=== PATIENT | male | born 1945 | race Caucasian/White ===

== ENCOUNTER → 2019-11-29 08:13 | Outpatient (BNVA) | payer MEDICARE, SELFPAY | PROVIDERS: Family Provider Nurse Practitioner Family; PCP Nurse Practitioner Family; Visit Provider Nurse Practitioner Family | DX: I10 Essential (primary) hypertension (principal); E03.9 Hypothyroidism, unspecified; E11.9 Type 2 diabetes mellitus without complications; E78.5 Hyperlipidemia, unspecified; I25.10 Atherosclerotic heart disease of native coronary artery without angina pectoris | CPT/HCPCS: 80053; 80061; 83036; 84443; 85025 ==

== ENCOUNTER 2019-12-07 20:00 | Outpatient (CLI) | payer MEDICARE, SELFPAY | END 2019-12-07 20:01 | disposition home or self-care (01) | LOC: SLEEP 12-08 09:59 | PROVIDERS: Family Provider Nurse Practitioner Family; PCP Nurse Practitioner Family; Visit Provider Nurse Practitioner Family | DX: G47.30 Sleep apnea, unspecified (principal) | CPT/HCPCS: 95810 ==

== ENCOUNTER 2019-12-28 20:00 | Outpatient (CLI) | payer MEDICARE, SELFPAY | END 2019-12-28 20:01 | disposition home or self-care (01) | LOC: SLEEP 12-29 09:51 | PROVIDERS: Visit Provider Nurse Practitioner Family | DX: G47.33 Obstructive sleep apnea (adult) (pediatric) (principal) | CPT/HCPCS: 95810; 95811 ==

== ENCOUNTER 2020-01-21 20:06 | Inpatient (IN) | payer MEDICARE, SELFPAY ==
[2020-01-21 20:11] VITALS: BP 80/65; PULSE 146; RESP 20; TEMP 36.6; O2SAT 93; BMI 34.7
--- NOTE | 2020-01-21 20:22 | XR_ITS ---
WS: [id number] XR chest 1V portable [id number] REASON FOR EXAM: cough/congestion FINDINGS: The cardiac silhouette is borderline enlarged with arteriosclerotic changes. The pattern is similar to October 10, 2019. There is eventration of the right hemidiaphragm similar to the last exam. The hilum and apices normal. XR/XR chest 1V portable [id number] IMPRESSION: Borderline cardiomegaly with arteriosclerotic changes. Eventration of the right hemidiaphragm.
--- NOTE | 2020-01-21 20:22 | ECG_ITS ---
Measurements Intervals [place] Rate: 66 P: 31 [place]: 206 QRS: 34 QRSD: 90 T: 76 QT: 380 QTc: 401 SINUS RHYTHM Compared to ECG 10/06/2019 04:49:59 Sinus bradycardia no longer present Myocardial infarct finding no longer present Electronically Signed On 01-22-2020 20:20:34 SPECIAL EVENTS MANAGER by Sujey Burt M.D. [id number]
[2020-01-21] MEDS: sodium chloride 0.9% 1,000 ML 999 ML IV (20:58)
[2020-01-21 21:08] LABS: Basophils % 0.3 %; Eosinophils # 0.9 10^3/uL (0.0-0.8); Hematocrit 44.4 % (42.0-52.0); Hemoglobin 14.8 g/dL (11.7-16.6); Lymphocytes # 2.5 10^3/uL (0.8-4.8); Lymphocytes % 25.9 %; Mean Corpuscular HGB Conc 33.3 g/dL (30.0-36.0); Mean Corpuscular Hemoglobin 31.4 pg (28.0-34.0); Mean Corpuscular Volume 94.1 fL (80-94); Monocytes # 0.6 10^3/uL (0.2-0.9); Monocytes % 6.1 %; Neutrophils # 5.8 10^3/uL (1.8-7.7); Neutrophils % 58.6 %; Nucleated Red Blood Cells % 0 %; Platelet Count 246 10^3/cmm (130-400); Red Blood Count 4.72 10^6/uL (4.1-5.3); Red Cell Distribution Width 11.9 % (12.1-15.1); White Blood Count 9.8 10^3/uL (4.0-10.0)
[2020-01-21 21:33] LABS: Alanine Aminotransferase 20 U/L (0-41); Albumin Level 4.1 g/dL (3.5-5.2); Alkaline Phosphatase 77 IU/L (40-130); Anion Gap 18.5 (5-19); Aspartate Amino Transferase 25 U/L (0-40); Blood Urea Nitrogen 27 mg/dL (8-23); Calcium 9.2 mg/dL (8.5-10.5); Carbon Dioxide 23 mmol/L (22-29); Chloride 101 mmol/L (98-107); Globulin 3.1 g/dL (1.3-4.6); Glucose 222 mg/dL (65-115); Potassium 4.5 mmol/L (3.5-5.1); Sodium 138 mmol/L (136-145); Total Bilirubin 0.3 mg/dL (0.15-1.2); Total Protein 7.2 g/dL (6.6-8.7)
[2020-01-21 21:34] LABS: Troponin(5th) Baseline 24 ng/mL (0-15)
--- NOTE | 2020-01-21 22:18 | ED_ITS ---
Entered by Maryan Lazo, acting as scribe for Eliseo Dela Cruz DO Jan 21, 2020 20:06 HPI - Chest Pain General: Chief Complaint: Chest Pain Stated Complaint: cp Time Seen by Provider: 01/21/20 20:35 Source: patient and EMS Mode of arrival: EMS History of Present Illness: HPI narrative: 74 y/o male presents to the ED with complaint of chest pain and elevated HR. Pt states he took his cardiac medications too close together. He took the first dose of the day ( normally taken in the AM) at 1500 and took the evening dose at 1930. Pt has hx of coronary dz and had stent placement several months ago. He also has hx of SVT. MD complaint: chest pain Associated symptoms: Reports abdominal pain (epigastric - chronic) and palpitations; Deny dyspnea, fever(s), nausea or vomiting Review of Systems Const: Denies: fever or chills Eyes: Denies: change in vision or blurry vision ENMT: Reports: post nasal drip and facial/sinus pain; Denies: painful swallowing or swelling of lips/tongue Card: Reports: chest pain, palpitations, edema and swelling of feet/ankles; Denies: shortness of breath on exertion or shortness of breath when lying down Resp: Denies: shortness of breath, productive cough, non-productive cough or wheezing GI: Reports: abdominal pain (epigastric - chronic); Denies: nausea, vomiting, rectal pain, blood in stool or black tarry stool : Denies: difficulty urinating, painful urination, urinary frequency, urinary urgency or blood in urine Musc: Reports: extremity swelling (1+); Denies: neck pain, back pain, redness or joint warmth Skin/Breast: Denies: rash, itching or redness Neuro: Denies: headache, dizziness, vertigo or confusion Psych: Denies: anxiety PFSH ED PFSH: Medical History (Updated 01/22/20 @ 00:59 by Chelle Gutierrez MD) CAD (coronary artery disease) Diabetes mellitus treated with oral medication Elevated LFTs History of paroxysmal supraventricular tachycardia History of throat cancer Hyperlipemia Hypertension Hypothyroid Ischemic cardiomyopathy Lumbar pain with radiation down both legs Myocardial infarction Nocturia Nodule of right lung Onychomycosis of toenail Right leg DVT Seasonal allergies Shortness of breath Sleep apnea Supraventricular tachycardia Surgical History History of heart artery stent Social History (Updated 01/17/20 @ 12:51 by Katelynn Mcpherson LPN, RT) Smoking and tobacco status: never smoked Second hand smoke exposure: No Lives independently: Yes Household members: significant other Marital status: service: Yes Current occupational status: retired History of recent travel: No Current gender identity: Male Physical Exam Const: COMMON NORMALS: alert GENERAL APPEARANCE: well developed ORIENTATION/CONSCIOUSNESS: Yes awake, Yes oriented to person, Yes oriented to place and Yes oriented to time HENMT: COMMON NORMALS: normocephalic, external ears normal, external nose normal and moist oral mucous membranes HEAD & SCALP: normocephalic; no scalp tenderness FACE & SINUS: normal facial exam NOSE: external nose normal and no nasal discharge EXTERNAL EAR: Yes external ears normal MOUTH: tongue normal TEETH & GINGIVA: no abnormal tooth and associated gingiva THROAT: posterior oropharynx normal; no peritonsillar mass Eye: COMMON NORMALS: PERRL, EOMs intact bilaterally and conjunctivae normal EYELID: eyelids normal CONJUNCTIVA: Yes conjunctivae normal PUPIL: Yes PERRL Neck/C-Spine: COMMON NORMALS: full ROM Chest: COMMONS NORMALS: inspection of chest normal CHEST: Yes symmetrical chest wall rise and Yes tenderness (epigastric - chronic) Resp: COMMON NORMALS: clear to auscultation bilaterally EFFORT & INSPECTION: No tachypneic, No respiratory distress, No retractions, No uses accessory muscles and No tracheal deviation AUSCULTATION: clear to auscultation bilaterally, no rhonchi, no wheezes and lung sounds not diminished Cardio: COMMON NORMALS: regular rhythm; negative for regular rate (tachycardia) RATE: abnormal rate (tachycardia) and tachycardic RHYTHM: regular rhythm HEART SOUNDS: no murmurs PERIPHERAL PULSES: radial pulses present GI: INSPECTION: No abdominal distension AUSCULTATION: No hyperactive bowel sounds and No hypoactive bowel sounds PALPATION: No guarding and No rigid PERCUSSION: no dullness to percussion and no tympanic to percussion Extremity: GENERAL: Yes edema (+1 LE) Neuro: SENSORIUM/ORIENTATION: Yes alert, Yes oriented to person, Yes oriented to place and Yes oriented to time Psych: COMMON NORMALS: mental status grossly normal and speech normal SPEECH: Yes normal speech Skin: COMMON NORMALS: no rashes or lesions noted GENERAL SKIN EXAM: no rashes or lesions noted Course Vital Signs: Vital signs: Vital Signs Temperature 97.9 F 01/22/20 04:00 Pulse Rate 57 L 01/22/20 04:00 Respiratory Rate 18 01/22/20 04:00 Blood Pressure 104/61 01/22/20 04:00 Pulse Oximetry 96 01/22/20 04:00 MDM - Chest Pain MDM Narrative: Medical decision making narrative: 74-year-old male with a history of coronary disease, stented September. He presents with chest pain, and palpitations. His heart rate was noted to be in the 150s. He is in SVT on EKG initially. Heart rate was 150s. Blood pressure mildly soft, in the high 80s and low 90s systolic. He was given a single dose of Cardizem, with resolution of his SVT over about 15 minutes. His heart rate decreased nicely to the 60s in sinus. His blood pressure improved to 120s over 70s. His first troponin was mildly elevated, his second troponin increased by a little more than 25. This is likely demand from rate given his prior coronary disease. But with the chest pain, and his history, he was given the option of observation. At first he said he would like to be discharged. He then quickly changed his mind, and opted for observation with continued checking of troponin enzyme. Lab Data: Labs: Lab Results 01/21/20 01/21/20 01/21/20 Range/Units 20:50 20:50 20:50 WBC 9.8 (4.0-10.0) 10^3/ uL RBC 4.72 (4.1-5.3) 10^6/u L Hgb 14.8 (11.7-16.6) g/dL Hct 44.4 (42.0-52.0) % MCV 94.1 H (80-94) fL MCH 31.4 (28.0-34.0) pg MCHC 33.3 (30.0-36.0) g/dL RDW 11.9 L (12.1-15.1) % Plt Count 246 (130-400) 10^3/c mm MPV 11.0 H (7.4-10.4) fL Neut % (Auto) 58.6 % Lymph % (Auto) 25.9 % [place] % (Auto) 6.1 % Eos % (Auto) 9.0 % Baso % (Auto) 0.3 % Neut # (Auto) 5.8 (1.8-7.7) 10^3/u L Lymph # (Auto) 2.5 (0.8-4.8) 10^3/u L [place] # (Auto) 0.6 (0.2-0.9) 10^3/u L Eos # (Auto) 0.9 H (0.0-0.8) 10^3/u L Baso # (Auto) 0.0 (0.0-0.1) 10^3/u L Nucleated RBC % (a uto) 0 % Nucleated RBCs # 0.0 /100WBC Sodium 138 (136-145) mmol/L Potassium 4.5 (3.5-5.1) mmol/L Chloride 101 (98-107) mmol/L Carbon Dioxide 23 (22-29) mmol/L Anion Gap 18.5 (5-19) BUN 27 H (8-23) mg/dL Creatinine 1.1 (0.7-1.2) mg/dL Glucose 222 H (65-115) mg/dL Calcium 9.2 (8.5-10.5) mg/dL Magnesium (1.7-2.3) mg/dL Total Bilirubin 0.3 (0.15-1.2) mg/dL AST 25 (0-40) U/L ALT 20 (0-41) U/L Alkaline Phosphata se 77 (40-130) IU/L Troponin T Baselin e 24 H (0-15) ng/mL Troponin T 120 Min darryl (0-15) ng/mL Delta Troponin T (0-10) ABS# Total Protein 7.2 (6.6-8.7) g/dL Albumin 4.1 (3.5-5.2) g/dL Globulin 3.1 (1.3-4.6) g/dL TSH (0.27-4.20) uIU/ mL 01/21/20 01/21/20 Range/Units 20:50 23:23 WBC (4.0-10.0) 10^3/ uL RBC (4.1-5.3) 10^6/u L Hgb (11.7-16.6) g/dL Hct (42.0-52.0) % MCV (80-94) fL MCH (28.0-34.0) pg MCHC (30.0-36.0) g/dL RDW (12.1-15.1) % Plt Count (130-400) 10^3/c mm MPV (7.4-10.4) fL Neut % (Auto) % Lymph % (Auto) % [place] % (Auto) % Eos % (Auto) % Baso % (Auto) % Neut # (Auto) (1.8-7.7) 10^3/u L Lymph # (Auto) (0.8-4.8) 10^3/u L [place] # (Auto) (0.2-0.9) 10^3/u L Eos # (Auto) (0.0-0.8) 10^3/u L Baso # (Auto) (0.0-0.1) 10^3/u L Nucleated RBC % (a uto) % Nucleated RBCs # /100WBC Sodium (136-145) mmol/L Potassium (3.5-5.1) mmol/L Chloride (98-107) mmol/L Carbon Dioxide (22-29) mmol/L Anion Gap (5-19) BUN (8-23) mg/dL Creatinine (0.7-1.2) mg/dL Glucose (65-115) mg/dL Calcium (8.5-10.5) mg/dL Magnesium 2.1 (1.7-2.3) mg/dL Total Bilirubin (0.15-1.2) mg/dL AST (0-40) U/L ALT (0-41) U/L Alkaline Phosphata se (40-130) IU/L Troponin T Baselin e (0-15) ng/mL Troponin T 120 Min darryl 53.37 H (0-15) ng/mL Delta Troponin T 29.37 H* (0-10) ABS# Total Protein (6.6-8.7) g/dL Albumin (3.5-5.2) g/dL Globulin (1.3-4.6) g/dL TSH 4.31 H (0.27-4.20) uIU/ mL EKG Data^: EKG 1: EKG interpretation date: 01/21/20 EKG interpretation time: 21:47 Computer generated interpretation: Sinus normal vent rate 66bpm pr int 206 ms qrs dur 90 EKG 2: EKG interpretation date: 01/21/20 EKG interpretation time: 22:19 Other EKG comments: Vent rate 62 bpm IA int 212 ms QRS due 95 ms Discharge Plan Discharge Patient Disposition: Placed in Observation Admit Provider: Chelle Gutierrez Clinical Impression: Supraventricular tachycardia Condition: Stable Discharge Diet: Usual diet Discharge Activity: Increase activity as tolerated Interventions: ED Discharge Assessment Last Done: 01/22/20 01:04 Discharge Date/Time: 01/22/20 01:25 Coding Level of Care Code ED Acid Loader for Chg Fwd Exam Comprehensive The documentation recorded by the Clifton olivares Ashley, accurately reflects the service I personally performed and the decisions made by Jose De Jesus thomas Jeremy John, DO Jan 21, 2020 20:06
--- NOTE | 2020-01-21 22:22 | ECG_ITS ---
Measurements Intervals [place] Rate: 62 P: 44 TN: 212 QRS: 45 QRSD: 95 T: 83 QT: 388 QTc: 397 SINUS RHYTHM WITH FIRST DEGREE AV BLOCK Compared to ECG 10/06/2019 04:49:59 First degree AV block now present Sinus bradycardia no longer present Myocardial infarct finding no longer present Electronically Signed On 01-22-2020 20:27:37 ASBESTOS CEMENT SHEET SUPERVISOR by Sujey Burt M.D. [id number]
[2020-01-21 23:44] LABS: Troponin 5 2HR 53.37 ng/mL (0-15)
[2020-01-21 23:47] LABS: Troponin 5 2HR Delta 29.37 ABS# (0-10)
--- NOTE | 2020-01-21 23:50 | PC.NURSE ---
Critical Value - Troponin 53.3 increase in Delta of 29.3
[2020-01-22] VITALS (9 sets, daily range): BP systolic 104–140; BP diastolic 50–77; PULSE 55–79; RESP 17–22; TEMP 36.4–36.8; O2SAT 93–98
--- NOTE | 2020-01-22 00:58 | PM.HP ---
Providers/Chief Complaint Admitting Physician: Chelle Gutierrez MD Primary Care Provider: Sally Min MD Chief Complaint: cp History of Present Illness Mike Esposito is a 74 year old male who has established coronary disease with stent in LAD after he was diagnosed with two-vessel disease in September 2019 came in with chief complaint of chest pain. Patient is stating that he was in his usual state of health until this event. He is independent for his daily activities never had any recurrence of chest pain since placement of stent. He does not smoke, he is compliant with dual antiplatelet therapy. He was lawnmowing outside for about 3 to 4 hours between 10 AM to 3 PM when he started experiencing chest pain which was left-sided, sharp, heavy in nature, his both wrists were hurting at that time, he went back inside to blood pressure which was 97 systolic with heart rate of 130 at that time he did told his girlfriend who recommended him to go to the ER. He called EMS, when they arrived to check his pulse which was 150, he was in SVT, he was given 50 mg of diltiazem which relieved his chest pain, improved his systolic blood pressure and he converted to normal sinus rhythm. Patient is endorsing recent sinus congestion and he was prescribed Augmentin he has finished 4 days out of 10, he is denying orthopnea PND. Diagnostics in ER showed normal sinus rhythm, normal hemodynamics, first troponin was not significantly high at however second troponin was high with significant delta he was asymptomatic, this was deemed secondary to tachyarrhythmia, patient was given an option to see economic research analyst on outpatient settings but he decided to stay because of recent stent history. Hospital service was requested to observe overnight. When I interviewed him he had normal hemodynamics, asymptomatic, he was eating his sandwich Patient is stating that he has not received his CPAP machine for sleep apnea, he is compliant with his magnesium and levothyroxine. Mag and TSH level ordered Review of Systems Const: Denies: fever or chills Eyes: Denies: change in vision ENMT: Denies: throat pain Card: Reports: chest pain and palpitations; Denies: irregular heart rhythm, edema, swelling of feet/ankles, lightheadedness, syncope or shortness of breath when lying down Resp: Denies: shortness of breath GI: Denies: abdominal pain, nausea or coffee grounds in vomit : Denies: flank pain Musc: Denies: neck pain Skin/Breast: Denies: rash Neuro: Denies: headache Psych: Denies: anxiety Endo: Denies: excessive urination Laith/Lymph: Denies: easy bruising All/Imm: Denies: hives Medications/Allergies Allergies Allergy/AdvReac Type Severity Reaction Status Date / Time erythromycin base Allergy ALGY-Hives Verified 01/22/20 01:20 PFSH Acute PFSH: Medical History (Updated 01/22/20 @ 00:59 by Chelle Gutierrez MD) CAD (coronary artery disease) Diabetes mellitus treated with oral medication Elevated LFTs History of paroxysmal supraventricular tachycardia History of throat cancer Hyperlipemia Hypertension Hypothyroid Ischemic cardiomyopathy Lumbar pain with radiation down both legs Myocardial infarction Nocturia Nodule of right lung Onychomycosis of toenail Right leg DVT Seasonal allergies Shortness of breath Sleep apnea Supraventricular tachycardia Surgical History History of heart artery stent Social History (Updated 01/17/20 @ 12:51 by Katelynn Mcpherson LPN, RT) Smoking and tobacco status: never smoked Second hand smoke exposure: No Lives independently: Yes Household members: significant other Marital status: service: Yes Current occupational status: retired History of recent travel: No Current gender identity: Male Vitals/I&O/Wt Last Vital Signs Temp 97.8 F 01/21/20 20:11 Pulse 146 H 01/21/20 20:11 Resp 20 H 01/21/20 20:11 BP 80/65 01/21/20 20:11 Pulse Ox 93 01/21/20 20:11 Weight last 48 hrs Weight 106.594 kg Physical Exam Narrative: EXAM NARRATIVE: Well-built male was eating sandwich on my arrival in the room Pleasant to communicate Awake alert oriented x3 EOMI, PERRLA S1-S2 no signs of heart failure murmur, reproducible chest pain Abdomen soft nontender nondistended bowel sound present Lungs are clear to auscultation without adventitious sounds Neurologically nonfocal exam Appropriate mood and affect Skin does not show any sign ischemia or ulcer Data : 01/21/20 20:50 01/21/20 20:50 A&P Assessment and plan (1) SVT (supraventricular tachycardia): Status: Acute Code(s): I47.1 - Supraventricular tachycardia (2) Chest pain: Status: Acute Code(s): R07.9 - Chest pain, unspecified (3) CAD (coronary artery disease): Status: Acute Code(s): I25.10 - Atherosclerotic heart disease of [place] coronary artery without angina pectoris Additional A&P Information Chest pain and palpitations Secondary to SVT Etiology of SVT is most likely upper respiratory infection, untreated sleep apnea, will check mag and TSH level as well I have increased his metoprolol dose for now from 50 to 100 mg Currently asymptomatic, normal sinus rhythm, EKG reviewed, 6-hour troponin is pending Established coronary disease with stent in LAD Continue dual antiplatelet therapy, Continue lisinopril, high-dose statin, Hypothyroidism: We will check TSH level, continue levothyroxine current dose BPH: Continue tamsulosin Upper restaurant tract infection/sinusitis He has been prescribed 10 days of Augmentin We will continue Augmentin for now Check flu swab Full code DVT prophylaxis: Lovenox Cardiac diet Attestations Medical Necessity Statement*: Anticipating discharge in less than 48 hours after ruling out cardiac cause of chest pain and monitor heart rate because he presented with SVT Time Spent in Patient Care: 50 Coding Level of Care Code Acute Tax Staff Accountant for Janny Hyatt Diagnoses SVT (supraventricular tachycardia) I47.1 Chest pain R07.9 CAD (coronary artery disease) I25.10
--- NOTE | 2020-01-22 01:21 | PC.NURSE ---
Agree with assessment at this time.
--- NOTE | 2020-01-22 01:27 | PC.NURSE ---
Patient arrived to the floor after receiving report from the ED. Patient is alert and oriented and able to ambulated. Patient has call light within reach and has been oriented to his room. Patient is not having any pain or any other issues at this time and is on room air. VSS. Patient states he went to sleep lab and was told he had sleep apnea and is in the process of getting a breathing machine for his sleep apnea. Patient states he has a history of throat cancer and has some teeth lost, which makes it difficult to eat at times. He says he does not have any dentures. He says he uses a cane at home at times.
--- NOTE | 2020-01-22 01:31 | PC.NURSE ---
Patient states he has been having trouble breathing through his nose and states he was recently taking Penicillin for it.
[2020-01-22 02:04] LABS: Magnesium 2.1 mg/dL (1.7-2.3); Thyroid Stimulating Hormone 4.31 uIU/mL (0.27-4.20)
--- NOTE | 2020-01-22 02:22 | ECG_ITS ---
Measurements Intervals [place] Rate: 148 P: [place]: 0 QRS: 33 QRSD: 106 T: 84 QT: 280 QTc: [address] & T-WAVE ABNORMALITY ABNORMAL RHYTHM ECG Compared to ECG 10/06/2019 04:49:59 T-wave abnormality now present Sinus bradycardia no longer present Myocardial infarct finding no longer present Electronically Signed On 01-22-2020 20:27:23 SPANISH LINGUIST by Sujey Burt M.D. [id number]
[2020-01-22 02:38] LABS: Influenza A by IFA Negative (Negative); Influenza B by IFA Negative (Negative)
[2020-01-22 04:23] LABS: Basophils % 0.4 %; Eosinophils # 0.8 10^3/uL (0.0-0.8); Hematocrit 42.3 % (42.0-52.0); Hemoglobin 13.9 g/dL (11.7-16.6); Lymphocytes # 2.4 10^3/uL (0.8-4.8); Lymphocytes % 31.2 %; Mean Corpuscular HGB Conc 32.9 g/dL (30.0-36.0); Mean Corpuscular Hemoglobin 32.2 pg (28.0-34.0); Mean Corpuscular Volume 97.9 fL (80-94); Monocytes # 0.5 10^3/uL (0.2-0.9); Monocytes % 6.8 %; Neutrophils % 51.5 %; Nucleated Red Blood Cells % 0 %; Platelet Count 219 10^3/cmm (130-400); Red Blood Count 4.32 10^6/uL (4.1-5.3); Red Cell Distribution Width 12.2 % (12.1-15.1); White Blood Count 7.8 10^3/uL (4.0-10.0)
[2020-01-22 04:25] LABS: Alanine Aminotransferase 15 U/L (0-41); Albumin Level 3.7 g/dL (3.5-5.2); Alkaline Phosphatase 60 IU/L (40-130); Anion Gap 11.9 (5-19); Aspartate Amino Transferase 25 U/L (0-40); Blood Urea Nitrogen 19 mg/dL (8-23); Calcium 8.5 mg/dL (8.5-10.5); Carbon Dioxide 25 mmol/L (22-29); Chloride 105 mmol/L (98-107); Globulin 2.9 g/dL (1.3-4.6); Glucose 155 mg/dL (65-115); Potassium 3.9 mmol/L (3.5-5.1); Sodium 138 mmol/L (136-145); Total Bilirubin 0.5 mg/dL (0.15-1.2); Total Protein 6.6 g/dL (6.6-8.7)
[2020-01-22 04:43] LABS: Troponin 5 6HR 209.3 ng/mL (0-15); Troponin 5 6HR Delta 185.3 ng/L (0-12)
[2020-01-22] MEDS: levothyroxine 150 mcg Tablet 75 MCG PO (07:09)
[2020-01-22] MEDS: aspirin 81 mg EC Tablet PO (08:29)
[2020-01-22] MEDS: tamsulosin 0.4 mg Capsule PO (08:29)
[2020-01-22] MEDS: atorvastatin 40 mg Tablet PO (08:29)
[2020-01-22] MEDS: clopidogrel 75 mg Tablet PO (08:29)
[2020-01-22] MEDS: carvedilol 6.25 mg Tablet PO (08:29)
[2020-01-22] MEDS: gabapentin 300 mg Capsule PO ×3 (08:29→20:13)
[2020-01-22] MEDS: lisinopril 5 mg Tablet 2.5 MG PO (08:30)
[2020-01-22] MEDS: amoxicillin-clav 875-125 mg Tablet 1 TAB PO ×2 (08:30→17:15)
--- NOTE | 2020-01-22 09:57 | PC.CHAP ---
Pastoral Care Encounter/Spiritual Assessment Type of Contact [] Declined disability counselor visit [] Patient/Family/Request visit [] Outpatient visit [] Follow-up visit [] Physician referral [] Code/Alert [] Routine visit [] Staff referral [] Actively dying [x`] Patient sleeping [] Family support [] [] Out of room [] Palliative care [] [] Receiving care in room [] Pre-surgical visit [] Trauma [] Long length of stay [] ICU visit [x] Other:needs follow up Relational/Emotional Strength [] Patient feels connected with others/family/visitors/staff [] Distress [] Loneliness/isolation [] Abandonment Spirituality of Patient [] Person of Elizabeth [] Attends Mu-Ism of their Elizabeth [] Believes in Prayer [] Reads Bible or Zoroastrian materials [] There are Spiritual issues to be addressed Acid Strength Inspector Interventions [] Prayer [] Active listening [] Non-anxious presence [] Spiritual/emotional support [] Crisis/trauma care [] Spiritual counseling [] Bereavement support [] Provided bereavement packet [] Provided Bible/devotional materials [] Provided toy/stuffed animal, coloring book to patient or family member [] Provided Communion [] Anointing/[place] [] Salvation [] Completed spiritual assessment [] Other: Impact on Illness or Injury [] Angry [] Fearful [] Anxious [] Often cries [] Exhaustion [] Unable to work [] Unable to attend baptist [] Unable to walk/stand [] Unable to read [] Unable to drive [] Unable to eat/drink [] Unable to sleep [] Unable to be with family [] Patient intubated [] Other: Summary pt sleeping needs follow up Time spent with patient 2 minutes
[2020-01-22 10:18] LABS: T3 Free 2.9 PG/ML (2.0-4.4)
--- NOTE | 2020-01-22 10:48 | PC.CHAP ---
Pastoral Care Encounter/Spiritual Assessment Type of Contact [] Declined gambling box person visit [] Patient/Family/Request visit [] Outpatient visit [] Follow-up visit [] Physician referral [] Code/Alert [X] Routine visit [] Staff referral [] Actively dying [] Patient sleeping [] Family support [] [] Out of room [] Palliative care [] [] Receiving care in room [] Pre-surgical visit [] Trauma [] Long length of stay [] ICU visit [] Other: Relational/Emotional Strength [X] Patient feels connected with others/family/visitors/staff [] Distress [] Loneliness/isolation [] Abandonment Spirituality of Patient X[] Person of Elizabeth [] Attends Evangelical of their Elizabeth [X] Believes in Prayer [] Reads Bible or Hinduism materials [] There are Spiritual issues to be addressed Consumer Services Advisor Interventions [X] Prayer [X] Active listening [X] Non-anxious presence [X] Spiritual/emotional support [] Crisis/trauma care [] Spiritual counseling [] Bereavement support [] Provided bereavement packet [] Provided Bible/devotional materials [] Provided toy/stuffed animal, coloring book to patient or family member [] Provided Communion [] Anointing/[place] [] Salvation [X] Completed spiritual assessment [] Other: Impact on Illness or Injury [] Angry [] Fearful [] Anxious [] Often cries [] Exhaustion [] Unable to work [] Unable to attend anabaptism [] Unable to walk/stand [] Unable to read [] Unable to drive [] Unable to eat/drink [] Unable to sleep [] Unable to be with family [] Patient intubated [X] Other: NO joint terminal attack controller affects expected Summary Pt stated he came in Wednesday and could have left but spouse convinced him to stay overnight. Pt stated he almost had a heart attack in the hospital but staff was present to treat him. If at home, pt stated he would probably have . Heis grateful to his and staff and plans to do every thing doctor tells him and not be in a hurry to leave. Pt grateful for prayer and visit of gambling box person. Consumer Services Advisor Phyllis Tai Time spent with patient 20 minutes
--- NOTE | 2020-01-22 11:17 | PM.CONSULT ---
Providers/Reason For Consult Consulting Physican/Specialty*: Cardiovascular medicine Reason for Consult*: SVT, elevated troponin, coronary artery disease Attending Physician: Darshan Mitchell MD Primary Care Provider: Sally Min MD History of Present Illness History of Present Illness Mike Esposito is a 74 year old male who was admitted yesterday with SVT which converted with Cardizem. The conversion occurred in the emergency room. Patient has a history of coronary disease, diabetes, hypertension among others. He also has a history of SVT in the past. Recently he has been on Augmentin for an upper respiratory infection. I last saw him on the of last month when he was doing just fine. He requested we treat the SVT medically and at that time was not interested in being referred for an ablation. Yesterday early afternoon he was replacing a part on a lawnmower. He was lying on the ground. He had forgotten to take all of his medications yesterday morning. Around 3:00 in the afternoon he went into the house to get something to drink, use the bathroom when he took his medications. 2 hours later he began to get an achiness in his wrists which he states is the first sign that he is going into SVT. This was associated with shortness of breath and chest pressure which are also associated with these episodes. It is at that point that he came into the emergency room and was treated. He quickly went back into sinus rhythm with Cardizem and has remained so since then. Currently he is in sinus rhythm at a rate of 60 bpm. His troponin is elevated. His EKGs however while in sinus rhythm are normal. In September of last year he had a myocardial infarction which appeared to be a STEMI in the distribution of the LAD. The LAD was occluded and 2 stents were placed in the mid LAD. A balloon angioplasty was done of a diagonal branch. There was minimal disease in the right and the circumflex. His ejection fraction was 40% by echo then. I looked at those films today for reassessment. At home he has been on a low-dose of Coreg, amoxicillin, aspirin, statin, Plavix, Lasix, lisinopril, potassium chloride and thyroid replacement. Review of Systems General: Reports: 10 or more systems reviewed and unremarkable except in HPI and below Meds/Allergies Home Medications and Allergies Home Medications Medication Instructions Recorded Confirmed Type clopidogrel 75 mg tablet 75 mg PO DAILY tab 11/21/19 01/21/20 History furosemide 20 mg tablet 20 mg PO QAM 11/21/19 01/21/20 History albuterol sulfate 90 mcg/actuation 2 puff INHALATION Q6H PRN 12/25/19 01/21/20 History aerosol inhaler atorvastatin 40 mg tablet 40 mg PO DAILY 12/25/19 01/21/20 History gabapentin 300 mg capsule 300 mg PO TID 12/25/19 01/21/20 History metformin 500 mg tablet 500 mg PO BID 12/25/19 01/21/20 History aspirin 81 mg tablet,delayed 81 mg PO DAILY 01/11/20 01/21/20 History release lisinopril 5 mg tablet 2.5 mg PO DAILY tab 01/11/20 01/21/20 History potassium chloride 10 mEq 10 meq PO BID tab 01/11/20 01/21/20 History tablet,extended release carvedilol [Coreg] 3.125 mg PO BID 01/22/20 01/22/20 History Allergies Allergy/AdvReac Type Severity Reaction Status Date / Time erythromycin base Allergy ALGY-Hives Verified 01/22/20 01:20 Current Medications Current Medications Generic Name Dose Route Start Last Admin Trade Name Freq PRN Reason Stop Dose Admin Amoxicillin/Clavulanate Potassium 1 tab 01/22/20 09:00 01/22/20 08:30 Augmentin 875-125 Mg PO 1 tab BID LEOPOLDO Administration Protocol Aspirin 81 mg 01/22/20 09:00 01/22/20 08:29 Aspirin Ec PO 81 mg DAILY LEOPLODO Administration Atorvastatin Calcium 40 mg 01/22/20 09:00 01/22/20 08:29 Lipitor PO 40 mg DAILY LEOPOLDO Administration Carvedilol 6.25 mg 01/22/20 09:00 01/22/20 08:29 Coreg PO 6.25 mg BID LEOPOLDO Administration Clopidogrel Bisulfate 75 mg 01/22/20 09:00 01/22/20 08:29 Plavix PO 75 mg DAILY LEOPOLDO Administration Gabapentin 300 mg 01/22/20 09:00 01/22/20 08:29 Neurontin PO 300 mg TID LEOPOLDO Administration Levothyroxine Sodium 75 mcg 01/22/20 09:00 01/22/20 07:09 Synthroid PO 75 mcg DAILY ELOPOLDO Administration Lisinopril 2.5 mg 01/22/20 09:00 01/22/20 08:30 Prinivil PO 2.5 mg DAILY LEOPOLDO Administration Tamsulosin HCl 0.4 mg 01/22/20 09:00 01/22/20 08:29 Flomax PO 0.4 mg DAILY LEOPOLDO Administration PFSH Acute PFSH: Medical History (Updated 01/22/20 @ 11:25 by Last Alonso MD) CAD (coronary artery disease) Diabetes mellitus treated with oral medication Elevated LFTs History of throat cancer Hyperlipemia Hypertension Hypothyroid Ischemic cardiomyopathy Lumbar pain with radiation down both legs Myocardial infarction Nocturia Nodule of right lung Onychomycosis of toenail Right leg DVT Seasonal allergies Shortness of breath Sleep apnea Supraventricular tachycardia Surgical History History of heart artery stent Social History (Updated 01/17/20 @ 12:51 by Katelynn Mcpherson LPN, RT) Smoking and tobacco status: never smoked Second hand smoke exposure: No Lives independently: Yes Household members: significant other Marital status: service: Yes Current occupational status: retired History of recent travel: No Current gender identity: Male Vitals/I&O/Wt Last Vital Signs Temp 97.9 F 01/22/20 04:00 Pulse 58 L 01/22/20 07:22 Resp 20 H 01/22/20 07:22 BP 134/63 01/22/20 07:22 Pulse Ox 96 01/22/20 07:22 01/21/20 01/22/20 01/22/20 22:59 06:59 14:59 Intake Total 720 / 720 Balance 720 / 720 Weight last 48 hrs Weight 244 lb 8 oz Weight 235 lb Physical Exam Narrative: EXAM NARRATIVE: GENERAL: In general he looks and feels well dressed in his overalls HEENT: Exam within normal limits. NECK: Supple without jugular vein distention. The carotid upstroke is normal without bruits. BACK: Exam normal. LUNGS: Clear. HEART: Regular rate and rhythm. ABDOMEN: Benign without organomegaly or tenderness. EXTREMITIES: No edema. NEUROLOGIC: Exam normal. SKIN: Unremarkable. Data Other Data: Other data: The 2 EKGs while he is in sinus rhythm reveal sinus rhythm and are basically normal. He has better R wave progression now than he did in September. The third EKG reveals SVT at a rate of 148. TSH 4.31. Troponin 24, 53 and 209. A&P Assessment and plan (1) Ischemic cardiomyopathy: Status: Acute Code(s): I25.5 - Ischemic cardiomyopathy (2) Myocardial infarction: Status: Acute Code(s): I21.9 - Acute myocardial infarction, unspecified (3) History of heart artery stent: Status: Acute Code(s): Z95.5 - Presence of coronary angioplasty implant and graft (4) Supraventricular tachycardia: Status: Acute Code(s): I47.1 - Supraventricular tachycardia (5) SVT (supraventricular tachycardia): Status: Inactive Code(s): I47.1 - Supraventricular tachycardia (6) Hypertension: Status: Acute Code(s): I10 - Essential (primary) hypertension (7) Hyperlipemia: Status: Acute Code(s): E78.5 - Hyperlipidemia, unspecified (8) Hypothyroid: Status: Acute Code(s): E03.9 - Hypothyroidism, unspecified (9) CAD (coronary artery disease): Status: Acute Code(s): I25.10 - Atherosclerotic heart disease of [place] coronary artery without angina pectoris (10) Diabetes mellitus treated with oral medication: Status: Acute Code(s): E11.9 - Type 2 diabetes mellitus without complications; Z79.84 - 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 In looking at his films from September I did not see anything that was suspicious in the other arteries that would require intervention. He did have a tight lesion in the very distal LAD in the apex and I think that was appropriately left alone previously. His EKG actually looks better now than it did in September. His symptoms entirely went away when the SVT was converted back to sinus rhythm. The carvedilol dose has been increased from 3.125 mg twice daily to 6.25 mg twice daily. There are several options. One would be to continue to treat him medically. The other is a stress test and the third is moving to angiography. He requested a stress test and I think this is a good place to start. If his stents were occluded he would have an ST elevation LA and he does not. Consult Attestations Medical Necessity Statement: Not applicable Coding Level of Care Code Acute Hydroelectric Plant Electrical Engineer for Chg Fwd History Comprehensive Exam Detailed Medical Decision Making High Complexity Diagnoses Ischemic cardiomyopathy I25.5 Myocardial infarction I21.9 History of heart artery stent Z95.5 Supraventricular tachycardia I47.1 SVT (supraventricular tachycardia) I47.1 Hypertension I10 Hyperlipemia E78.5 Hypothyroid E03.9 CAD (coronary artery disease) I25.10 Diabetes mellitus treated with oral medication E11.9; Z79.84 Elevated troponin R79.89
--- NOTE | 2020-01-22 17:37 | PM.PN ---
Subjective Subjective: Interval history: H&P and labs noted. No acute events overnight other than mild sharp chest pain at around 7 AM while he was lying in bed without any nausea, vomiting, palpitations. Chest pain was short-lived. Patient states he has been having on and off chest pain on exertion for last 1 to 2 months but was worse yesterday when he also had heart rate going up to 150 for systolic blood pressure of 90. Delta troponin noted to be more than 180 along with SVT and chest pain. Vitals/I&O/Wt Last Vital Signs Temp 97.9 F 01/22/20 16:00 Pulse 57 L 01/22/20 16:00 Resp 18 01/22/20 16:00 BP 109/62 01/22/20 16:00 Pulse Ox 95 01/22/20 16:00 01/22/20 01/22/20 01/22/20 06:59 14:59 22:59 Intake Total 720 / 720 Balance 720 / 720 Weight last 48 hrs Weight 110.903 kg Weight 106.594 kg Physical Exam Narrative: EXAM NARRATIVE: General: No acute distress, AO x3 HEENT: PERRLA, pupils bilaterally equal and reactive Chest: Normal vesicular breath sounds, no added sounds, equal good air entry bilaterally CVS: S1-S2 regular, no murmurs, no tachycardia, no gallops, no rubs Abdomen: Soft, nontender, no organomegaly, bowel sounds present Neuro: No focal deficits, no facial deformity, AO x3, power 5/5 in all limbs Data : 01/22/20 03:19 01/22/20 03:19 A&P Assessment and plan (1) SVT (supraventricular tachycardia): Status: Inactive Code(s): I47.1 - Supraventricular tachycardia (2) NSTEMI (non-ST elevated myocardial infarction): Status: Acute Code(s): I21.4 - Non-ST elevation (NSTEMI) myocardial infarction (3) Chest pain: Status: Acute Code(s): R07.9 - Chest pain, unspecified (4) Ischemic cardiomyopathy: Status: Acute Code(s): I25.5 - Ischemic cardiomyopathy (5) CAD (coronary artery disease): Status: Acute Code(s): I25.10 - Atherosclerotic heart disease of [place] coronary artery without angina pectoris Additional A&P Information NSTEMI: Delta troponins more than 180. On review of the records it looks like patient had a double vessel disease for which he had a stent placement proximal LAD and mid LAD along with first diagonal. Patient also had residual disease in distal LAD and a possible lesion in LCx for which he was prescribed stress test by Dr. Chen. Patient never did a stress test. Given the symptoms, significant delta changes, recurrent chest pain We will consult cardiology for possible cardiac cath versus stress test. Continue with aspirin, Plavix, statin, beta-wenceslao, GABRIELA inhibitor. Dose of Coreg increased overnight to 6.25 so we will continue with same. Lipid panel results appreciated. Hypothyroidism: TSH elevated. Check free T3 and T4. For now continue on same home dose of levothyroxine. Viral bronchitis: Patient has been prescribed Augmentin as an outpatient. Currently at day 03/31. We will continue the same. Flu swab negative. Start patient on Flonase. Patient uses albuterol nebulization at home, given SVT will advise him not to use albuterol instead leave albuterol as needed. BPH: Continue tamsulosin Full code DVT prophylaxis: Lovenox Cardiac diet Will change admission to inpatient Attestations Medical Necessity Statement*: NSTEMI Time Spent in Patient Care: Greater than 35 minutes Coding Level of Care Code Acute Drafter Directional Survey for [facility] F[facility] Diagnoses SVT (supraventricular tachycardia) I47.1 NSTEMI (non-ST elevated myocardial infarction) I21.4 Chest pain R07.9 Ischemic cardiomyopathy I25.5 CAD (coronary artery disease) I25.10
[2020-01-22] MEDS: fluticasone nasal spray 16gm Btl 1 SPRAY NASAL (18:27)
[2020-01-23] VITALS (13 sets, daily range): BP systolic 108–119; BP diastolic 58–69; PULSE 56–80; RESP 18–25; TEMP 36.4; O2SAT 91–98; BMI 36.1
[2020-01-23 04:20] LABS: Basophils % 0.5 %; Eosinophils # 0.9 10^3/uL (0.0-0.8); Eosinophils % 10.3 %; Hematocrit 43.1 % (42.0-52.0); Hemoglobin 14.3 g/dL (11.7-16.6); Lymphocytes # 2.5 10^3/uL (0.8-4.8); Lymphocytes % 29.3 %; Mean Corpuscular HGB Conc 33.2 g/dL (30.0-36.0); Mean Corpuscular Hemoglobin 31.6 pg (28.0-34.0); Mean Corpuscular Volume 95.1 fL (80-94); Mean Platelet Volume 11.2 fL (7.4-10.4); Monocytes # 0.6 10^3/uL (0.2-0.9); Monocytes % 6.7 %; Neutrophils # 4.5 10^3/uL (1.8-7.7); Neutrophils % 52.8 %; Nucleated Red Blood Cells % 0 %; Platelet Count 219 10^3/cmm (130-400); Red Blood Count 4.53 10^6/uL (4.1-5.3); Red Cell Distribution Width 12.2 % (12.1-15.1); White Blood Count 8.6 10^3/uL (4.0-10.0)
[2020-01-23 04:39] LABS: Alanine Aminotransferase 17 U/L (0-41); Albumin Level 3.9 g/dL (3.5-5.2); Alkaline Phosphatase 65 IU/L (40-130); Anion Gap 15.2 (5-19); Aspartate Amino Transferase 28 U/L (0-40); Blood Urea Nitrogen 18 mg/dL (8-23); Calcium 9.3 mg/dL (8.5-10.5); Carbon Dioxide 25 mmol/L (22-29); Chloride 105 mmol/L (98-107); Creatinine Clr Calc Pharmacy 80.7547; Globulin 2.9 g/dL (1.3-4.6); Glucose 118 mg/dL (65-115); Potassium 4.2 mmol/L (3.5-5.1); Sodium 141 mmol/L (136-145); Total Bilirubin 0.3 mg/dL (0.15-1.2); Total Protein 6.8 g/dL (6.6-8.7)
[2020-01-23] MEDS: FUROsemide 20 mg Tablet PO (05:58)
--- NOTE | 2020-01-23 06:17 | ECG_ITS ---
NAME OF STUDY: LEXISCAN SESTAMIBI STRESS TEST INDICATION: KNOWN CAD/SVT/ELEVATED TROPONIN, LEXISCAN STRESS TEST ORDERING PHYSICIAN: Celeste CLINICAL INFORMATION: SVT, chest pain, elevated troponin INTERPRETATION: 1. The patient was brought to the laboratory where Lexiscan was infused over 20 seconds. The resting blood pressure was 150/85. Maximum blood pressure was 150/85. The resting heart rate was 53 beats per minute. The maximum heart rate is 75 beats per minute. 2. The baseline electrocardiogram reveals sinus rhythm and is a normal tracing 3. With Lexiscan infusion, there were no ST segment changes to suggest ischemia. 4. The patient experienced no symptoms or arrhythmias during the examination. CONCLUSION: 1. Unremarkable Lexiscan infusion. 2. Nuclear imaging to follow. Electronically Signed On 01-23-2020 16:58:05 ROUTE RIDER SUPERVISOR by Last Alonso M.D. [email or web address]
[2020-01-23] MEDS: regadenoson 0.4 Mg/5 ml Syringe IVP (07:51)
--- NOTE | 2020-01-23 09:28 | PC.CHAP ---
Pastoral Care Encounter/Spiritual Assessment Type of Contact [] Declined raking machine operator visit [] Patient/Family/Request visit [] Outpatient visit [] Follow-up visit [] Physician referral [] Code/Alert [x] Routine visit [] Staff referral [] Actively dying [] Patient sleeping [] Family support [] [x] Out of room [] Palliative care [] [] Receiving care in room [] Pre-surgical visit [] Trauma [] Long length of stay [] ICU visit [] Other: Relational/Emotional Strength [] Patient feels connected with others/family/visitors/staff [] Distress [] Loneliness/isolation [] Abandonment Spirituality of Patient [] Person of Elizabeth [] Attends Restorationist of their Elizabeth [] Believes in Prayer [] Reads Bible or Sikh materials [] There are Spiritual issues to be addressed Senior Net Architect Interventions [] Prayer [] Active listening [] Non-anxious presence [] Spiritual/emotional support [] Crisis/trauma care [] Spiritual counseling [] Bereavement support [] Provided bereavement packet [] Provided Bible/devotional materials [] Provided toy/stuffed animal, coloring book to patient or family member [] Provided Communion [] Anointing/[place] [] Salvation [x] Completed spiritual assessment [] Other: Impact on Illness or Injury [] Angry [] Fearful [] Anxious [] Often cries [] Exhaustion [] Unable to work [] Unable to attend taoist [] Unable to walk/stand [] Unable to read [] Unable to drive [] Unable to eat/drink [] Unable to sleep [] Unable to be with family [] Patient intubated [] Other: Summary Time spent with patient
[2020-01-23] MEDS: fluticasone nasal spray 16gm Btl 1 SPRAY NASAL ×2 (09:56→17:19)
[2020-01-23] MEDS: lisinopril 5 mg Tablet 2.5 MG PO (09:56)
[2020-01-23] MEDS: enoxaparin 40 mg/0.4 mL Syringe SUBCUT (09:56)
[2020-01-23] MEDS: atorvastatin 40 mg Tablet PO (09:57)
[2020-01-23] MEDS: amoxicillin-clav 875-125 mg Tablet 1 TAB PO ×2 (09:57→17:19)
[2020-01-23] MEDS: clopidogrel 75 mg Tablet PO (09:57)
[2020-01-23] MEDS: levothyroxine 150 mcg Tablet 75 MCG PO (09:57)
[2020-01-23] MEDS: gabapentin 300 mg Capsule PO ×2 (09:57→14:45)
[2020-01-23] MEDS: tamsulosin 0.4 mg Capsule PO (09:57)
[2020-01-23] MEDS: aspirin 81 mg EC Tablet PO (09:57)
--- NOTE | 2020-01-23 10:19 | PM.PN ---
Subjective Subjective: Interval history: No changes overnight. Patient is having his stress test this morning. Medications: Reviewed: Yes Vitals/I&O/Wt Last Vital Signs Temp 97.5 F L 01/23/20 03:56 Pulse 56 L 01/23/20 03:56 Resp 20 H 01/23/20 03:56 BP 117/59 01/23/20 08:31 Pulse Ox 93 01/23/20 03:56 01/22/20 01/23/20 01/23/20 22:59 06:59 14:59 Intake Total 290 / 1010 50 / 1060 Balance 290 / 1010 50 / 1060 Weight last 48 hrs Weight 244 lb 8 oz Weight 244 lb 8 oz Weight 235 lb Physical Exam Narrative: EXAM NARRATIVE: GENERAL: In general he looks and feels well. HEENT: Exam within normal limits. NECK: Supple without jugular vein distention. The carotid upstroke is normal without bruits. BACK: Exam normal. LUNGS: Clear. HEART: Regular rate and rhythm. ABDOMEN: Benign without organomegaly or tenderness. EXTREMITIES: No edema. NEUROLOGIC: Exam normal. SKIN: Unremarkable. Data : 01/23/20 03:04 01/23/20 03:04 A&P Assessment and plan (1) Elevated troponin: Status: Acute Code(s): R79.89 - Other specified abnormal findings of blood chemistry (2) Diabetes mellitus treated with oral medication: Status: Acute Code(s): E11.9 - Type 2 diabetes mellitus without complications; Z79.84 - halfway (current) use of oral hypoglycemic drugs (3) Ischemic cardiomyopathy: Status: Acute Code(s): I25.5 - Ischemic cardiomyopathy (4) Myocardial infarction: Status: Acute Code(s): I21.9 - Acute myocardial infarction, unspecified (5) History of heart artery stent: Status: Acute Code(s): Z95.5 - Presence of coronary angioplasty implant and graft (6) Supraventricular tachycardia: Status: Acute Code(s): I47.1 - Supraventricular tachycardia (7) Hypertension: Status: Acute Code(s): I10 - Essential (primary) hypertension (8) Hyperlipemia: Status: Acute Code(s): E78.5 - Hyperlipidemia, unspecified (9) CAD (coronary artery disease): Status: Acute Code(s): I25.10 - Atherosclerotic heart disease of [place] coronary artery without angina pectoris Additional A&P Information We will await the results of the stress test. Further recommendations after this is completed. Attestations Medical Necessity Statement*: Not applicable Coding Level of Care Code Established Pt Acute Die Designer for Chg Fwd Patient Type Established History Detailed Exam Detailed Medical Decision Making Moderate Complexity Diagnoses Elevated troponin R79.89 Diabetes mellitus treated with oral medication E11.9; Z79.84 Ischemic cardiomyopathy I25.5 Myocardial infarction I21.9 History of heart artery stent Z95.5 Supraventricular tachycardia I47.1 Hypertension I10 Hyperlipemia E78.5 CAD (coronary artery disease) I25.10
--- NOTE | 2020-01-23 11:28 | NMCV_ITS ---
NM joel perf SPECT r/s* [id number] Mike Esposito Age: 74 Gender: M : 1945 Exam Date: 01/23/2020 07:04 Ordering Phys: Last Alonso MD ([email or web address]) Technologist: HALEY Galeano Exam Location: [facility] Indications: CHEST PAIN STRESS TEST Please see separate stress test report in [facility] for full findings IMAGE PROTOCOL Rest/Stress 1 Lexiscan Day Radiopharmaceutical Dose (mCi) Administration Site Administered by Rest: Tc-99m 11.0 IV HALEY Galeano Sestamibi Stress:Tc-99m 32.6 IV HALEY Galeano Sestamibi Rest: 23-Jan-2020 60 Discovery 630 Stress: 23-Jan-2020 30 Discovery 630 0.4mg Lexiscan. Images obtained in supine and prone position. SPECT RESULTS Technical Quality: Excellent Raw Data Analysis: Normal Image Corrections: No attenuation or motion correction applied Summed Stress Score: 8 Summed Rest Score: 6 Summed Difference Score: 4 PERFUSION FINDINGS Small size perfusion abnormality of mild severity of mid septal, apical septal and apical lateral woods on rest images with reversibility noted in apical septal, apical inferior and apical woods on stress images. FUNCTIONAL RESULTS (calculated via Gated SPECT) Stress Image LV EF (%): 50 Stress EDV (mL):113 TID: 0.96 Stress ESV (mL):56 FUNCTIONAL FINDINGS: The left ventricle is normal in size. Transient Ischemia Dilatation of 0.96. The left ventricular ejection fraction is mildly reduced with a value of 50%. There is mild apical hypokinesis. IMPRESSIONS 1. Small sized perfusion abnormality of mid septal, apical septal and apical lateral woods with reversibility noted in apical woods on stress images. 2. This is suggestive of old myocardial infarction with small area of lulu- infarct ischemia in distal left anterior descending artery territory. 3. The left ventricular ejection fraction is mildly reduced with a value of 50%. 4. There is mild apical hypokinesis. 5. No prior similar studies to compare. Bruna Caldera MD (Electronically Signed) Final Date: 23 January 2020 13:12 S
--- NOTE | 2020-01-23 13:23 | PM.PN ---
Subjective Subjective: Interval history: No acute events overnight. Patient has not had any further chest pain. Patient is due to have his stress test today. Patient has remained n.p.o. for that. Denies of any nausea, vomiting, palpitations, headache. Vitals/I&O/Wt Last Vital Signs Temp 97.5 F L 01/23/20 03:56 Pulse 65 01/23/20 11:10 Resp 24 H 01/23/20 11:10 BP 119/69 01/23/20 11:10 Pulse Ox 98 01/23/20 11:10 01/22/20 01/23/20 01/23/20 22:59 06:59 14:59 Intake Total 290 / 1010 50 / 1060 120 / 120 Balance 290 / 1010 50 / 1060 120 / 120 Weight last 48 hrs Weight 110.903 kg Weight 110.903 kg Weight 106.594 kg Physical Exam Narrative: EXAM NARRATIVE: General: No acute distress, AO x3 HEENT: PERRLA, pupils bilaterally equal and reactive Chest: Normal vesicular breath sounds, no added sounds, equal good air entry bilaterally CVS: S1-S2 regular, no murmurs, no tachycardia, no gallops, no rubs Abdomen: Soft, nontender, no organomegaly, bowel sounds present Neuro: No focal deficits, no facial deformity, AO x3, power 5/5 in all limbs Data : 01/23/20 03:04 01/23/20 03:04 A&P Assessment and plan (1) SVT (supraventricular tachycardia): Status: Inactive Code(s): I47.1 - Supraventricular tachycardia (2) NSTEMI (non-ST elevated myocardial infarction): Status: Acute Code(s): I21.4 - Non-ST elevation (NSTEMI) myocardial infarction (3) Chest pain: Status: Acute Code(s): R07.9 - Chest pain, unspecified (4) Ischemic cardiomyopathy: Status: Acute Code(s): I25.5 - Ischemic cardiomyopathy (5) CAD (coronary artery disease): Status: Acute Code(s): I25.10 - Atherosclerotic heart disease of [place] coronary artery without angina pectoris Additional A&P Information NSTEMI: Delta troponins more than 180. On review of the records it looks like patient had a double vessel disease for which he had a stent placement proximal LAD and mid LAD along with first diagonal. Patient also had residual disease in distal LAD and a possible lesion in LCx for which he was prescribed stress test by Dr. Chen. Patient never did a stress test. Given the symptoms, significant delta changes, recurrent chest pain Patient is due to have a stress test done today. For now we will continue with aspirin, Plavix, statin, beta-wenceslao, GABRIELA inhibitor, full dose Lovenox. Lipid panel results appreciated. Patient has had heart rate going down to mid 50s but has remained asymptomatic. Hypothyroidism: Free T3 and T4 levels are normal. We will continue on current dose of levothyroxine. Viral bronchitis: Patient has been prescribed Augmentin as an outpatient. Currently at day 03/31. We will continue the same. Flu swab negative. Start patient on Flonase. Patient uses albuterol nebulization at home, given SVT will advise him not to use albuterol instead levo albuterol as needed. BPH: Continue tamsulosin Full code DVT prophylaxis: Lovenox Cardiac diet Attestations Medical Necessity Statement*: NSTEMI Time Spent in Patient Care: 16 - 35 minutes Coding Level of Care Code Acute Assistant Federal Public Defender for g Fwd Diagnoses SVT (supraventricular tachycardia) I47.1 NSTEMI (non-ST elevated myocardial infarction) I21.4 Chest pain R07.9 Ischemic cardiomyopathy I25.5 CAD (coronary artery disease) I25.10
--- NOTE | 2020-01-23 18:53 | P.DS_ITS ---
Discharge Providers Date of Admission: 01/22/20 17:36 Date of Discharge: January 23, 2020 Attending Provider at Admission: Chelle Gutierrez MD Attending Provider at Discharge: Darshan Mitchell MD Consults: Cardiology: Dr. Alonso Primary Care Provider: Sally Min MD Diagnoses at Discharge Discharge Diagnosis (1) SVT (supraventricular tachycardia): Status: Inactive (2) NSTEMI (non-ST elevated myocardial infarction): Status: Acute (3) Chest pain: Status: Acute (4) Ischemic cardiomyopathy: Status: Acute (5) CAD (coronary artery disease): Status: Acute Reason for Visit Reason for Visit: Reason For Visit: cp Hospital Course Discharge Summary: Mike Esposito is a 74 year old male who has established coronary disease with stent in LAD, diagonal 1 after he was diagnosed with two-vessel disease in September 2019 came in on 01/22/20 with chief complaint of chest pain. Patient is stating that he was in his usual state of health until this event. He is independent for his daily activities never had any recurrence of chest pain since placement of stent. He does not smoke, he is compliant with dual antiplatelet therapy. He was lawnmowing outside for about 3 to 4 hours between 10 AM to 3 PM when he started expe riencing chest pain which was left-sided, sharp, heavy in nature, his both wrists were hurting at that time, he went back inside to blood pressure which was 97 systolic with heart rate of 130 at that time he did told his girlfriend who recommended him to go to the ER. He called EMS, when they arrived to check his pulse which was 150, he was in SVT, he was given 50 mg of diltiazem which relieved his chest pain, improved his systolic blood pressure and he converted to normal sinus rhythm. Patient is endorsing recent sinus congestion and he was prescribed Augmentin he has finished 4 days out of 10, he is denying orthopnea PND. Diagnostics in ER showed normal sinus rhythm, normal hemodynamics, first troponin was not significantly high at however second troponin was high with significant delta he was asymptomatic, this was deemed secondary to tachyarrhythmia, patient was given an option to see drum tester on outpatient settings but he decided to stay because of recent stent history. Hospital service was requested to observe overnight. During hospitalization patient remained stable and did not have any other episodes of SVT other than occasional chest pain. Patient's troponins were concerning with delta of more than 180 so cardiology was consulted for NSTEMI. He was treated with full dose lovenox. After discussion with cardiology and patient underwent stress test on January 22 which showed area of old infarct with mild lulu-infarct ischemia. It was decided to continue the medical treatment. Patient remained chest pain-free, hemodynamically stable and is being discharged home with advice to follow-up with his primary care physician within a 7 to 10 days and with cardiology next 2 weeks. Patient's dose of beta-wenceslao was increased which he tolerated well. Physical Exam Narrative: EXAM NARRATIVE: See my progress note from today Discharge Data Data Completed and Pending: Completed Studies During Hospitalization Category Date Time Status Sestamibi Stress Test Request Routi ne Exams 01/23/20 06:17 Completed XR chest 1V wendy ble [id number] Urgent Exams 01/21/20 20:22 Completed NM joel perf SPECT r/s* [id number] Routin e Nuc Med 01/23/20 11:28 Completed Pending at discharge Category Date Time Status Sestamibi Stress Test Request Routi ne Exams 01/22/20 11:28 Stop Req Complete Blood Co unt w/Auto AM LABS Lab 01/24/20 04:00 Ordered Complete Blood Co unt w/Auto AM LABS Lab 01/25/20 04:00 Ordered Comprehensive Met abolic Panel AM LA BS Lab 01/24/20 04:00 Ordered Comprehensive Met abolic Panel AM LA BS Lab 01/25/20 04:00 Ordered Labs from last 24 hours 01/23/20 01/23/20 03:04 03:04 WBC 8.6 RBC 4.53 Hgb 14.3 Hct 43.1 MCV 95.1 H MCH 31.6 MCHC 33.2 RDW 12.2 Plt Count 219 MPV 11.2 H Neut % (Auto) 52.8 Lymph % (Auto) 29.3 [place] % (Auto) 6.7 Eos % (Auto) 10.3 Baso % (Auto) 0.5 Neut # (Auto) 4.5 Lymph # (Auto) 2.5 [place] # (Auto) 0.6 Eos # (Auto) 0.9 H Baso # (Auto) 0.0 Nucleated RBC % (a uto) 0 Nucleated RBCs # 0.0 Sodium 141 Potassium 4.2 Chloride 105 Carbon Dioxide 25 Anion Gap 15.2 BUN 18 Creatinine 1.0 Glucose 118 H Calcium 9.3 Total Bilirubin 0.3 AST 28 ALT 17 Alkaline Phosphata se 65 Total Protein 6.8 Albumin 3.9 Globulin 2.9 Vitals: Last Vital Signs Temp 97.5 F L 01/23/20 03:56 Pulse 65 01/23/20 16:22 Resp 21 H 01/23/20 15:46 BP 114/63 01/23/20 15:46 Pulse Ox 94 01/23/20 16:22 Discharge Plan Discharge Patient Disposition: Home, Self-Care Condition: Stable Prescriptions: New carvedilol 6.25 mg Tablet 6.25 mg PO BID Qty: 30 RF: 0 fluticasone propionate 50 mcg/actuation [place],Suspension 1 spray nasal BID Qty: 30 RF: 0 Xopenex HFA 45 mcg/actuation HFA aerosol inhaler 1 inh INHALATION Q6H PRN (Reason: shortness of breath or wheezing) Qty: 15 RF: 0 Continued aspirin [Aspir-81] 81 mg tablet,delayed release (DR/EC) 81 mg PO DAILY RF: 0 clopidogrel [Plavix] 75 mg tablet 75 mg PO DAILY RF: 0 furosemide 20 mg tablet 20 mg PO QAM RF: 0 potassium chloride [Klor-Con 10] 10 mEq tablet extended release 10 meq PO BID RF: 0 lisinopril 5 mg tablet 2.5 mg PO DAILY RF: 0 gabapentin 300 mg capsule 300 mg PO TID RF: 0 atorvastatin 40 mg tablet 40 mg PO DAILY RF: 0 metformin 500 mg tablet 500 mg PO BID RF: 0 tamsulosin [Flomax] 0.4 mg capsule 0.4 mg PO DAILY Qty: 30 RF: 2 levothyroxine 75 mcg tablet 75 mcg PO DAILY Qty: 30 RF: 2 amoxicillin-pot clavulanate [Augmentin] 875-125 mg tablet 1 tab PO BID 10 Days Qty: 20 RF: 0 Discontinued albuterol sulfate [ProAir HFA] 90 mcg/actuation HFA aerosol inhaler 2 puff INHALATION Q6H PRN (Reason: Bronchodilation) RF: 0 carvedilol [Coreg] 3.125 mg tablet 3.125 mg PO BID RF: 0 Discharge Orders: Discharge Order (Routine); Ordered 01/23/20 Ordered By: Darshan Mitchell Referrals: Last Alonso MD [Physician] - 1 month Sally Min MD [Primary Care Provider] - 01/29/20 2:30 pm (At this appointment, your provider will discuss your recent sleep study results as well as your recent hospital stay. If, haven't heard from them by tomorrow afternoon. Please, call ) Discharge Diet: Usual diet Discharge Activity: Increase activity as tolerated Patient Instructions: Supraventricular Tachycardia (ED), Chest Pain (ED) Activity Restrictions/Additional Instructions: Return for repeated episodes of chest discomfort, palpitations, shortness of breath, fatigue, fever, other concerning symptoms. 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
--- NOTE | 2020-01-23 19:20 | PC.NURSE ---
Up ambulating in [place]. Gait steady. Discharge orders explained to patient with patient voicing understanding. Copies given to patient. Awaiting ride. Will monitor.
== END 2020-01-23 19:45 | disposition home or self-care (01) | DRG 282 ==
LOC: ER 01-22 00:17 → CSU 01-22 00:42
PROVIDERS: Physician Assistant; Admitting Provider Internal Medicine; Emergency Provider Emergency Medicine; PCP Family Medicine; Visit Provider Student in an Organized Health Care Education/Training Program
DX: I47.1 Supraventricular tachycardia (principal); I21.4 Non-ST elevation (NSTEMI) myocardial infarction; I25.5 Ischemic cardiomyopathy; I25.10 Atherosclerotic heart disease of native coronary artery without angina pectoris; R07.9 Chest pain, unspecified; E78.5 Hyperlipidemia, unspecified; E03.9 Hypothyroidism, unspecified; N40.0 Benign prostatic hyperplasia without lower urinary tract symptoms; E11.9 Type 2 diabetes mellitus without complications; R79.89 Other specified abnormal findings of blood chemistry; J20.8 Acute bronchitis due to other specified organisms; Z79.82 Long term (current) use of aspirin; Z79.890 Hormone replacement therapy; Z79.84 Long term (current) use of oral hypoglycemic drugs; Z95.820 Peripheral vascular angioplasty status with implants and grafts; Z95.5 Presence of coronary angioplasty implant and graft
CPT/HCPCS: 12345; 36415; 71045; 78452; 80053; 83735; 84439; 84443; 84481; 84484; 85025; 87804; 93005; 93017; 94660; 94664; 96372; 96374; 99283; A9500; G0378; J1650; J2785; J3490; J7030

== ENCOUNTER 2020-02-10 18:05 | Inpatient (IN) | payer MEDICARE, SELFPAY ==
[2020-02-10] VITALS (49 sets, daily range): BP systolic 92–149; BP diastolic 52–87; PULSE 53–147; RESP 12–27; TEMP 36.4; O2SAT 89–97; BMI 35.6
--- NOTE | 2020-02-10 18:11 | ED_ITS ---
Entered by Cynthia Stiles, acting as scribe for Olga Cain HPI - General Adult General: Chief complaint: Chest Pain Stated complaint: cp Time Seen by Provider: 02/10/20 18:16 History of Present Illness: HPI narrative: 74 yo male presents with chest pain. Pt states that he has had this several times due to his Afib. Pt states that the chest pain has been going on since about 4pm today. MD complaint: chest pain. Onset (ago): hour(s) Location: chest Radiation: non-radiation Severity: moderate Pain Consistency: constant Associated symptoms: Reports chest pain and dyspnea; Deny confusion, diaphoresis, headache(s), malaise, nausea, rash or vomiting Review of Systems General: Reports: other (negative unless marked) Const: Denies: fever, chills, body aches, fatigue, malaise or diaphoresis Eyes: Denies: change in vision or blurry vision ENMT: Denies: throat pain, painful swallowing, hoarseness, ear pain, ear discharge, Change in hearing or nasal discharge Card: Reports: chest pain Resp: Reports: shortness of breath; Denies: productive cough, non-productive cough, wheezing, coughing up blood or chest congestion GI: Denies: abdominal pain, nausea, vomiting, vomiting blood, coffee grounds in vomit, diarrhea, constipation, cramping, blood in stool or black tarry stool : Denies: flank pain, difficulty urinating, painful urination, urinary frequency, urinary urgency, decreased urine ouput, urinary incontinence or blood in urine Musc: Denies: joint warmth Skin/Breast: Denies: rash, skin tenderness or yellow skin Neuro: Denies: headache, numbness in extremities, weakness in extremities, changes in sensation, lack of coordination, difficulty walking, dizziness, vertigo or confusion Endo: Denies: excessive thirst, tired all the time, cold intolerance, excessive sweating, flushing or hot flashes Laith/Lymph: Denies: easy bruising, easy bleeding, petechiae or enlarged lymph nodes All/Imm: Denies: hives, throat swelling, tongue swelling, facial swelling or acute wheezing PFSH ED PFSH: Medical History CAD (coronary artery disease) Diabetes mellitus treated with oral medication Elevated LFTs History of throat cancer Hyperlipemia Hypertension Hypothyroid Ischemic cardiomyopathy Lumbar pain with radiation down both legs Myocardial infarction Nocturia Nodule of right lung Onychomycosis of toenail Right leg DVT Seasonal allergies Shortness of breath Sleep apnea Supraventricular tachycardia Surgical History History of heart artery stent September 2019: LAD x2 Family History Father CAD (coronary artery disease) Brother Cancer Sister Lung disease Denies family history of Diabetes Clotting disorder Dementia Hyperlipidemia Psychiatric illness Chronic kidney disease (CKD) Suicide Anesthesia complication Bleeding disorder Family history of premature coronary artery disease Hypertension Stroke Social History Smoking and tobacco status: never smoked Second hand smoke exposure: No Lives independently: Yes Household members: significant other Marital status: service: Yes Current occupational status: retired History of recent travel: No Current gender identity: Male Physical Exam Const: COMMON NORMALS: no apparent distress, oriented x3, no limitations, healthy appearing and well nourished EXAM LIMITATIONS: no altered mental status GENERAL APPEARANCE: cooperative, well kempt and well developed ORIENTATION/CONSCIOUSNESS: Yes awake HENMT: COMMON NORMALS: normocephalic, head/scalp atraumatic, hearing grossly normal bilaterally, external ears normal, EAC's normal, external nose normal and moist oral mucous membranes HEAD & SCALP: normal to inspection, normocephalic and atraumatic FACE & SINUS: normal facial exam and face symmetric NOSE: external nose normal and nares normal EXTERNAL EAR: Yes external ears normal EXTERNAL AUDITORY CANAL: EAC's normal MOUTH: oral and palatal mucosa normal and tongue normal Eye: COMMON NORMALS: PERRL, EOMs intact bilaterally, conjunctivae normal and no scleral icterus GENERAL EYE: normal appearance of both eyes and normal light reflex CONJUNCTIVA: Yes conjunctivae normal SCLERA: sclerae normal CORNEA: Yes corneas normal PUPIL: Yes PERRL DIRECT OPHTHALMOSCOPY: Yes normal light reflex Neck/C-Spine: COMMON NORMALS: full ROM, no lymphadenopathy, supple and no meningeal signs GENERAL: Yes normal visual inspection and Yes trachea midline CERVICAL SPINE: Yes cervical ROM normal Chest: COMMONS NORMALS: inspection of chest normal and palpation of chest normal Resp: COMMON NORMALS: normal respiratory effort, no retractions, no use of accessory muscles and clear to auscultation bilaterally EFFORT & INSPECTION: Yes able to speak in complete sentences AUSCULTATION: clear to auscultation bilaterally Cardio: JUGULAR VENOUS DISTENTION: no JVD RATE: tachycardic RHYTHM: abnormal rhythm irregularly irregular GI: COMMON NORMALS: soft to palpation, non-tender, no hepatosplenomegaly and no masses INSPECTION: Yes normal to inspection PALPATION: Yes soft and Yes no hepatosplenomegaly : COMMON NORMALS: Yes no CVA tenderness BLADDER/KIDNEY EXAM: Yes no CVA tenderness Back/Pelvis: COMMON NORMALS: no CVA tenderness, thoracic and lumbar spine normal to inspection, no thoracic nor lumbar tenderness and thoraco-lumbar ROM normal Extremity: COMMON NORMALS: normal to inspection, full ROM, normal capillary refill, no joint enlargement, no clubbing, cyanosis or edema and no calf tenderness Neuro: COMMON NORMALS: oriented x3, CN's II-XII intact bilaterally, moves all extremities, no focal motor deficits and no sensory deficits noted MENINGEAL SIGNS: Yes no meningeal signs Psych: COMMON NORMALS: mental status grossly normal, thought process normal, cooperative, affect normal, speech normal and activity/motor behavior normal APPEARANCE: Yes well kempt SPEECH: Yes normal speech THOUGHT PROCESS: normal thought process Skin: COMMON NORMALS: no rashes or lesions noted, skin turgor normal, no jaundice, no petechiae and no mottling GENERAL SKIN EXAM: no rashes or lesions noted and turgor normal Course Vital Signs: Vital signs: Vital Signs Temperature 97.6 F 02/10/20 23:21 Pulse Rate 53 L 02/10/20 23: Respiratory Rate 19 H 02/10/20 23:21 Blood Pressure 149/81 02/10/20 23:21 Pulse Oximetry 94 02/10/20 23:21 MDM - General Adult MDM Narrative: Medical decision making narrative: Mike is a nice 74-year-old male who comes in complaining of chest discomfort. Further review of his cath from September 2019 and his hospital stay earlier this month it was determined that he had another blockage that may need intervention in the future. The patient had SVT tonight that abated with Cardizem IV. His troponin did go up which may be related to the SVT but also could be from his blockages. The case was reviewed in full with Dr. Burt, and he agrees to consult if necessary but thinks the patient should be admitted for rule out with the hospitalist. They may decide just adjust his medications. I reviewed the case with Dr. Mosqueda she is agreeable to admit with Dr. Burt consult. Lab Data: Attestation: I reviewed the patient's lab results. Labs: Lab Results 02/10/20 02/10/20 02/10/20 Range/Units 18:30 18:30 18:30 WBC (4.0-10.0) 10^3/ uL RBC (4.1-5.3) 10^6/u L Hgb (11.7-16.6) g/dL Hct (42.0-52.0) % MCV (80-94) fL MCH (28.0-34.0) pg MCHC (30.0-36.0) g/dL RDW (12.1-15.1) % Plt Count (130-400) 10^3/c mm MPV (7.4-10.4) fL Neut % (Auto) % Lymph % (Auto) % [place] % (Auto) % Eos % (Auto) % Baso % (Auto) % Neut # (Auto) (1.8-7.7) 10^3/u L Lymph # (Auto) (0.8-4.8) 10^3/u L [place] # (Auto) (0.2-0.9) 10^3/u L Eos # (Auto) (0.0-0.8) 10^3/u L Baso # (Auto) (0.0-0.1) 10^3/u L Nucleated RBC % (a uto) % Nucleated RBCs # /100WBC PT 13.80 H (10.5-13.3) SECO NDS INR 1.02 (0.8-1.2) D-Dimer (0-0.59) ug/mIFE U Sodium 140 (136-145) mmol/L Potassium 4.5 (3.5-5.1) mmol/L Chloride 102 (98-107) mmol/L Carbon Dioxide 26 (22-29) mmol/L Anion Gap 16.5 (5-19) BUN 21 (8-23) mg/dL Creatinine 1.1 (0.7-1.2) mg/dL Glucose 181 H (65-115) mg/dL Calculated Osmolal ity 291 (285-295) mOsm/k g Calcium 9.5 (8.5-10.5) mg/dL Total Bilirubin 0.3 (0.15-1.2) mg/dL AST 27 (0-40) U/L ALT 21 (0-41) U/L Alkaline Phosphata se 66 (40-130) IU/L Troponin T Baselin e 23 H (0-15) ng/mL Troponin T 120 Min [place] (0-15) ng/mL Delta Troponin T (0-10) ABS# NT-Pro-B Natriuret Pep (0-125) pg/mL Total Protein 7.1 (6.6-8.7) g/dL Albumin 4.2 (3.5-5.2) g/dL Globulin 2.9 (1.3-4.6) g/dL Lipase 27 (13-60) U/L 02/10/20 02/10/20 02/10/20 Range/Units 18:30 18:30 18:57 WBC 9.0 (4.0-10.0) 10^3/ uL RBC 4.62 (4.1-5.3) 10^6/u L Hgb 15.3 (11.7-16.6) g/dL Hct 45.1 (42.0-52.0) % MCV 97.6 H (80-94) fL MCH 33.1 (28.0-34.0) pg MCHC 33.9 (30.0-36.0) g/dL RDW 12.1 (12.1-15.1) % Plt Count 180 (130-400) 10^3/c mm MPV 10.9 H (7.4-10.4) fL Neut % (Auto) 55.9 % Lymph % (Auto) 28.0 % [place] % (Auto) 5.4 % Eos % (Auto) 10.0 % Baso % (Auto) 0.4 % Neut # (Auto) 5.0 (1.8-7.7) 10^3/u L Lymph # (Auto) 2.5 (0.8-4.8) 10^3/u L [place] # (Auto) 0.5 (0.2-0.9) 10^3/u L Eos # (Auto) 0.9 H (0.0-0.8) 10^3/u L Baso # (Auto) 0.0 (0.0-0.1) 10^3/u L Nucleated RBC % (a uto) 0 % Nucleated RBCs # 0.0 /100WBC PT (10.5-13.3) SECO NDS INR (0.8-1.2) D-Dimer 3.98 H (0-0.59) ug/mIFE U Sodium (136-145) mmol/L Potassium (3.5-5.1) mmol/L Chloride (98-107) mmol/L Carbon Dioxide (22-29) mmol/L Anion Gap (5-19) BUN (8-23) mg/dL Creatinine (0.7-1.2) mg/dL Glucose (65-115) mg/dL Calculated Osmolal ity (285-295) mOsm/k g Calcium (8.5-10.5) mg/dL Total Bilirubin (0.15-1.2) mg/dL AST (0-40) U/L ALT (0-41) U/L Alkaline Phosphata se (40-130) IU/L Troponin T Baselin e (0-15) ng/mL Troponin T 120 Min [place] (0-15) ng/mL Delta Troponin T (0-10) ABS# NT-Pro-B Natriuret Pep 239 H (0-125) pg/mL Total Protein (6.6-8.7) g/dL Albumin (3.5-5.2) g/dL Globulin (1.3-4.6) g/dL Lipase (13-60) U/L /21/20 Range/Units 20:26 WBC (4.0-10.0) 10^3/ uL RBC (4.1-5.3) 10^6/u L Hgb (11.7-16.6) g/dL Hct (42.0-52.0) % MCV (80-94) fL MCH (28.0-34.0) pg MCHC (30.0-36.0) g/dL RDW (12.1-15.1) % Plt Count (130-400) 10^3/c mm MPV (7.4-10.4) fL Neut % (Auto) % Lymph % (Auto) % [place] % (Auto) % Eos % (Auto) % Baso % (Auto) % Neut # (Auto) (1.8-7.7) 10^3/u L Lymph # (Auto) (0.8-4.8) 10^3/u L [place] # (Auto) (0.2-0.9) 10^3/u L Eos # (Auto) (0.0-0.8) 10^3/u L Baso # (Auto) (0.0-0.1) 10^3/u L Nucleated RBC % (a uto) % Nucleated RBCs # /100WBC PT (10.5-13.3) SECO NDS INR (0.8-1.2) D-Dimer (0-0.59) ug/mIFE U Sodium (136-145) mmol/L Potassium (3.5-5.1) mmol/L Chloride (98-107) mmol/L Carbon Dioxide (22-29) mmol/L Anion Gap (5-19) BUN (8-23) mg/dL Creatinine (0.7-1.2) mg/dL Glucose (65-115) mg/dL Calculated Osmolal ity (285-295) mOsm/k g Calcium (8.5-10.5) mg/dL Total Bilirubin (0.15-1.2) mg/dL AST (0-40) U/L ALT (0-41) U/L Alkaline Phosphata se (40-130) IU/L Troponin T Baselin e (0-15) ng/mL Troponin T 120 Min [place] 36.97 H (0-15) ng/mL Delta Troponin T 13.97 H* (0-10) ABS# NT-Pro-B Natriuret Pep (0-125) pg/mL Total Protein (6.6-8.7) g/dL Albumin (3.5-5.2) g/dL Globulin (1.3-4.6) g/dL Lipase (13-60) U/L Imaging Data^: CXR: My impression: No acute cardiopulmonary findings CT Chest: Radiologist's impression: [place] [address] [address] [address] Scan Report Signed Patient: Mike Esposito Unit #: [id number] : 1945 Age/Sex: 74 / M ADM Date: 02/10/20 Loc: ER Room/Bed: Attending Dr: Ordering Provider/Ordering MD: Olga Cain DO Date of Service: 02/10/20 Procedure(s): CT angio chest PE protcl [id number] Accession Number(s): [id number] Report Number: [id number] PROCEDURE INFORMATION: Exam: CT Angiography Chest With Contrast Exam date and time: 02/10/2020 8:53 PM Age: 74 years old Clinical indication: Left-sided chest pain; Prior surgery; Surgery date: 1-6 months; Surgery type: Stents; Patient HX: C/O L sided cp into lue resolved; Additional info: Dyspnea, positive d-dimer TECHNIQUE: Imaging protocol: Computed tomographic angiography of the chest with intravenous contrast. 3D rendering: MIP and/or 3D reconstructed images were created by the technologist. Total DLP: 599.27 mGy-cm Radiation optimization: All CT scans at this facility use at least one of these dose optimization techniques: automated exposure control; mA and/or kV adjustment per patient size (includes targeted exams where dose is matched to clinical indication); or iterative reconstruction. Contrast material: OMNI 350; Contrast volume: 95 ml; Contrast route: 20G; COMPARISON: CT chest w con* [id number] 09/30/2018 9:25 AM FINDINGS: Pulmonary arteries: No visible pulmonary embolism. No visible pulmonary arterial thrombus. Aorta: The thoracic aorta is nonaneurysmal. Mild arterial sclerotic disease. Lungs: Mild dependent atelectasis. No visible active interstitial or alveolar airspace disease. Again note of 2 very small pulmonary nodules right upper lobe both measuring under 4 mm that have not changed since 09/30/2018. Stability suggests benignancy. Recommend routine surveillance. Pleural space: No visible pleural effusion. No visible pneumothorax. Heart: Two vessel coronary disease with extensive involvement of the left main and left anterior descending artery. Left ventricular prominence. Lymph nodes: No visible mediastinal or hilar lymphadenopathy. Bones/joints: Age-appropriate degenerative disease of the spine. Soft tissues: Unremarkable. CT/CT angio chest PE protcl [id number] IMPRESSION: 1. No visible pulmonary embolism. 2. Stable 2 very small pulmonary nodules right upper lobe. No change since 09/30/2018. For patients at low risk (minimal or absent history of smoking and of other known risk factors), no routine follow-up is indicated. For patients at high risk (history of smoking or of other known risk factors), consider optional CT at 12 months. (Marcellaholizeth, et al., Fleischner Society, 2017). 3. Two vessel coronary disease with extensive involvement of the left main and left anterior descending artery. Radiation Dose CTDIVOL = (mGy): DLP = 599.27 (mGy-cm) Dictated By: Dave Carbajal Signed By: Dave Carbajal Signed Date/Time: 02/10/202137 DD/ 36 EKG Data^: EKG 1: Attestation: I personally reviewed and interpreted this EKG as follows: EKG interpretation date: 02/10/20 EKG interpretation time: 18:24 Interpretation: SVT versus A. fib with ventricular rate of 139 beats a minute, normal axis, no acute ST or T wave changes. Computer generated interpretation: Chest X-Ray 02/10/20 18:16 IMPRESSION: Stable nonacute. Chest CTA 02/10/20 20:36 IMPRESSION: 1. No visible pulmonary embolism. 2. Stable 2 very small pulmonary nodules right upper lobe. No change since 09/30/2018. For patients at low risk (minimal or absent history of smoking and of other known risk factors), no routine follow-up is indicated. For patients at high risk (history of smoking or of other known risk factors), consider optional CT at 12 months. (Angelita et al., Fleischner Society, 2017). 3. Two vessel coronary disease with extensive involvement of the left main and left anterior descending artery. Radiation Dose CTDIVOL = (mGy): DLP = 599.27 (mGy-cm) EKG 2: Attestation: I personally reviewed and interpreted this EKG as follows: EKG interpretation date: 02/10/20 EKG interpretation time: 19:04 Interpretation: Normal sinus rhythm at 66 beats a minute, T wave inversions in aVL, otherwise no acute ST or T wave changes. Computer generated interpretation: Chest X-Ray 02/10/20 18:16 IMPRESSION: Stable nonacute. Chest CTA 02/10/20 20:36 IMPRESSION: 1. No visible pulmonary embolism. 2. Stable 2 very small pulmonary nodules right upper lobe. No change since 09/30/2018. For patients at low risk (minimal or absent history of smoking and of other known risk factors), no routine follow-up is indicated. For patients at high risk (history of smoking or of other known risk factors), consider optional CT at 12 months. (MacMahon, et al., Fleischner Society, 2017). 3. Two vessel coronary disease with extensive involvement of the left main and left anterior descending artery. Radiation Dose CTDIVOL = (mGy): DLP = 599.27 (mGy-cm) EKG 3: Attestation: I personally reviewed and interpreted this EKG as follows: EKG interpretation date: 02/10/20 EKG interpretation time: 21:40 Interpretation: Normal sinus rhythm at 57 beats a minute, T wave inversions in aVL, no other acute ST or T wave changes. Computer generated interpretation: Chest X-Ray 02/10/20 18:16 IMPRESSION: Stable nonacute. Chest CTA 02/10/20 20:36 IMPRESSION: 1. No visible pulmonary embolism. 2. Stable 2 very small pulmonary nodules right upper lobe. No change since 09/30/2018. For patients at low risk (minimal or absent history of smoking and of other known risk factors), no routine follow-up is indicated. For patients at high risk (history of smoking or of other known risk factors), consider optional CT at 12 months. (Marcellaholizeth, et al., Fleischner Society, 2017). 3. Two vessel coronary disease with extensive involvement of the left main and left anterior descending artery. Radiation Dose CTDIVOL = (mGy): DLP = 599.27 (mGy-cm) Discharge Plan Discharge Patient Disposition: Admitted As Inpatient Admit Provider: Li Mosqueda Clinical Impression: Supraventricular tachycardia, CAD (coronary artery disease) Condition: Stable Interventions: ED Discharge Assessment Last Done: 02/10/20 23:07 Discharge Date/Time: 02/10/20 23:20 Coding Level of Care Code ED Director [employer] for Chg Fwd Exam Comprehensive The documentation recorded by the scribe, Stiles,Kialy, accurately reflects the service I personally performed and the decisions made by me, Olga Cain Feb 10, 2020 18:05
--- NOTE | 2020-02-10 18:16 | XRR_ITS ---
PROCEDURE INFORMATION: Exam: XR Chest, 1 View Exam date and time: 02/10/2020 6:37 PM Age: 74 years old Clinical indication: Chest pain; Type not specified; Patient HX: Pts heart rate is elevated TECHNIQUE: Imaging protocol: XR of the chest Views: 1 view. COMPARISON: CR XR chest 1V portable [id number] 01/21/2020 8:59 PM FINDINGS: Lungs: Unremarkable. No consolidation. Pleural space: Unremarkable. No pleural effusion. No pneumothorax. Heart/Mediastinum: The mild cardiomegaly. Mild arteriosclerosis. Bones/joints: Unremarkable for age. XR/XR chest 1V portable [id number] IMPRESSION: Stable nonacute.
--- NOTE | 2020-02-10 18:17 | ECG_ITS ---
Measurements Intervals [place] Rate: 139 P: TN: 0 QRS: 50 QRSD: 112 T: 84 QT: 284 QTc: 432 SUPRAVENTRICULAR TACHYCARDIA MODERATE INTRAVENTRICULAR CONDUCTION DELAY [110+ ms QRS DURATION] NONSPECIFIC T-WAVE ABNORMALITY ABNORMAL RHYTHM ECG Compared to ECG 01/21/2020 22:19:57 Intraventricular conduction delay now present T-wave abnormality now present Sinus rhythm no longer present First degree AV block no longer present Electronically Signed On 02-11-2020 9:12:20 CDT by Tito Chen [email or web address]
[2020-02-10] MEDS: aspirin 81 mg Chew Tablet 324 MG PO (18:23)
[2020-02-10 18:52] LABS: INR 1.02 (0.8-1.2)
--- NOTE | 2020-02-10 18:52 | PC.NURSE ---
Pt oxygen saturations dropped to 88% on room air, notified Dr Cain, placed pt on 2LNC oxygen.
[2020-02-10 18:58] LABS: Alanine Aminotransferase 21 U/L (0-41); Albumin Level 4.2 g/dL (3.5-5.2); Alkaline Phosphatase 66 IU/L (40-130); Anion Gap 16.5 (5-19); Blood Urea Nitrogen 21 mg/dL (8-23); Calcium 9.5 mg/dL (8.5-10.5); Carbon Dioxide 26 mmol/L (22-29); Chloride 102 mmol/L (98-107); Globulin 2.9 g/dL (1.3-4.6); Glucose 181 mg/dL (65-115); Lipase 27 U/L (13-60); Osmolality Calculated 291 mOsm/kg (285-295); Potassium 4.5 mmol/L (3.5-5.1); Sodium 140 mmol/L (136-145); Total Bilirubin 0.3 mg/dL (0.15-1.2); Total Protein 7.1 g/dL (6.6-8.7)
[2020-02-10 19:00] LABS: Troponin(5th) Baseline 23 ng/mL (0-15)
--- NOTE | 2020-02-10 19:00 | PC.NURSE ---
Prior to cardizem drip start, pt noted to have converted to NSR at 66. Dr Cain notified, EKG obtained, hold on Cardizem drip and turned pt O2 off for now. Pt updated on need for continued monitoring.
--- NOTE | 2020-02-10 19:02 | ECG_ITS ---
Measurements Intervals [place] Rate: 66 P: 45 SD: 206 QRS: 38 QRSD: 100 T: 80 QT: 382 QTc: 400 SINUS RHYTHM WITH OCCASIONAL SUPRAVENTRICULAR PREMATURE COMPLEXES Compared to ECG 01/21/2020 22:19:57 First degree AV block no longer present Electronically Signed On 02-11-2020 9:12:18 CDT by Tito Chen [id number]
[2020-02-10 19:06] LABS: Basophils % 0.4 %; Eosinophils # 0.9 10^3/uL (0.0-0.8); Hematocrit 45.1 % (42.0-52.0); Hemoglobin 15.3 g/dL (11.7-16.6); Lymphocytes # 2.5 10^3/uL (0.8-4.8); Mean Corpuscular HGB Conc 33.9 g/dL (30.0-36.0); Mean Corpuscular Hemoglobin 33.1 pg (28.0-34.0); Mean Corpuscular Volume 97.6 fL (80-94); Mean Platelet Volume 10.9 fL (7.4-10.4); Monocytes # 0.5 10^3/uL (0.2-0.9); Monocytes % 5.4 %; Neutrophils % 55.9 %; Nucleated Red Blood Cells % 0 %; Platelet Count 180 10^3/cmm (130-400); Red Blood Count 4.62 10^6/uL (4.1-5.3); Red Cell Distribution Width 12.1 % (12.1-15.1)
[2020-02-10 19:09] LABS: Aspartate Amino Transferase 27 U/L (0-40)
--- NOTE | 2020-02-10 19:38 | PC.NURSE ---
Introduced self to patient and initiated vital signs. Patient presents A&O x 4. NAD, ABCs intact, MAEW and agreeable to treatment. Respirations are even and unlabored. Pt states that the chief complaint for the ER visit today is due to chest pain but is not experiencing any discomfort at present. Pt denies any vision disturbances or lightheadedness. Bed left in lowest position in semi-fowlers with side rails up.Reassured patient of needs and will continue to monitor.
[2020-02-10 20:11] LABS: NT Pro B Type Natriuretic Pept 239 pg/mL (0-125)
--- NOTE | 2020-02-10 20:17 | ECG_ITS ---
Measurements Intervals [place] Rate: 57 P: 24 AR: 218 QRS: 4 QRSD: 104 T: 72 QT: 398 QTc: 389 SINUS BRADYCARDIA WITH FIRST DEGREE AV BLOCK NONSPECIFIC T-WAVE ABNORMALITY Compared to ECG 01/21/2020 22:19:57 T-wave abnormality now present Sinus rhythm no longer present Electronically Signed On 02-11-2020 9:12:48 CDT by Tito Chen [id number]
[2020-02-10 20:34] LABS: D Dimer 3.98 ug/mIFEU (0-0.59)
--- NOTE | 2020-02-10 20:36 | CTR_ITS ---
PROCEDURE INFORMATION: Exam: CT Angiography Chest With Contrast Exam date and time: 02/10/2020 8:53 PM Age: 74 years old Clinical indication: Left-sided chest pain; Prior surgery; Surgery date: 1-6 months; Surgery type: Stents; Patient HX: C/O L sided cp into lue resolved; Additional info: Dyspnea, positive d-dimer TECHNIQUE: Imaging protocol: Computed tomographic angiography of the chest with intravenous contrast. 3D rendering: MIP and/or 3D reconstructed images were created by the technologist. Total DLP: 599.27 mGy-cm Radiation optimization: All CT scans at this facility use at least one of these dose optimization techniques: automated exposure control; mA and/or kV adjustment per patient size (includes targeted exams where dose is matched to clinical indication); or iterative reconstruction. Contrast material: OMNI 350; Contrast volume: 95 ml; Contrast route: 20G; COMPARISON: CT chest w con* [id number] 09/30/2018 9:25 AM FINDINGS: Pulmonary arteries: No visible pulmonary embolism. No visible pulmonary arterial thrombus. Aorta: The thoracic aorta is nonaneurysmal. Mild arterial sclerotic disease. Lungs: Mild dependent atelectasis. No visible active interstitial or alveolar airspace disease. Again note of 2 very small pulmonary nodules right upper lobe both measuring under 4 mm that have not changed since 09/30/2018. Stability suggests benignancy. Recommend routine surveillance. Pleural space: No visible pleural effusion. No visible pneumothorax. Heart: Two vessel coronary disease with extensive involvement of the left main and left anterior descending artery. Left ventricular prominence. Lymph nodes: No visible mediastinal or hilar lymphadenopathy. Bones/joints: Age-appropriate degenerative disease of the spine. Soft tissues: Unremarkable. CT/CT angio chest PE protcl [id number] IMPRESSION: 1. No visible pulmonary embolism. 2. Stable 2 very small pulmonary nodules right upper lobe. No change since 09/30/2018. For patients at low risk (minimal or absent history of smoking and of other known risk factors), no routine follow-up is indicated. For patients at high risk (history of smoking or of other known risk factors), consider optional CT at 12 months. (Angelita et al., Fleischner Society, 2017). 3. Two vessel coronary disease with extensive involvement of the left main and left anterior descending artery. Radiation Dose CTDIVOL = (mGy): DLP = 599.27 (mGy-cm)
[2020-02-10 20:47] LABS: Troponin 5 2HR 36.97 ng/mL (0-15)
[2020-02-10 20:48] LABS: Troponin 5 2HR Delta 13.97 ABS# (0-10)
[2020-02-10] MEDS: iohexol 350 mg/mL 100 mL Btl IV (21:06)
--- NOTE | 2020-02-10 23:14 | P.HP_ITS ---
Providers/Chief Complaint Admitting Physician: Li Mosqueda MD Primary Care Provider: Sally Min MD Chief Complaint: cp History of Present Illness Mike Esposito is a 74 year old male who has established coronary disease with stent in LAD, diagonal 1 after he was diagnosed with two-vessel disease in September 2019 came in on 01/22/20 with chief complaint of chest pain. Patient is stating that he was in his usual state of health until this event. He is independent for his daily activities never had any recurrence of chest pain since placement of stent. He does not smoke, he is compliant with dual antiplatelet therapy. He was lawn mowing outside for about 3 to 4 hours between 10 AM to 3 PM when he started experiencing chest pain which was left-sided, sharp, heavy in nature, his both wrists were hurting at that time, he went back inside to blood pressure which was 97 systolic with heart rate of 130 at that time he did told his girlfriend who recommended him to go to the ER. He called EMS, when they arrived to check his pulse which was 150, he was in SVT, he was given 50 mg of diltiazem which relieved his chest pain, improved his systolic blood pressure and he converted to normal sinus rhythm. During hospitalization patient remained stable and did not have any other episodes of SVT other than occasional chest pain. Patient's troponins were concerning with delta of more than 180 so cardiology was consulted for NSTEMI. He was treated with full dose l ovenox. After discussion with cardiology, patient underwent stress test on January 22 which showed area of old infarct with mild lulu-infarct ischemia. It was decided to continue the medical treatment. Patient's dose of beta-wenceslao was increased which he tolerated well. He followed up with cardiology on 01/28 and noted to be doing well. He returns today with c/o palpitations, chest pain and was found to be in SVT with HR 130s, converted to sinus rhythm with cardizem 15mg IVP. His troponin is mildly elevated at 23, increasing to 36.9 with a 2 hr delta of 13.9. C/o left elbow pain at time of onset of symptoms. Feels that episode was precipitated by exposure to cold wind. At home, he continued to check HR and BP, and presented to Ed when BP dropped to systolic 70. Review of Systems General: Reports: 10 or more systems reviewed and unremarkable except in HPI and below Const: Denies: fever, chills or body aches Eyes: Denies: change in vision, blurry vision or photophobia ENMT: Reports: hoarseness; Denies: throat pain, enlarged tonsils, painful swallowing or nasal congestion Card: Denies: chest pain, palpitations, irregular heart rhythm, edema, swelling of feet/ankles, lightheadedness, pre-syncope, shortness of breath on exertion or shortness of breath when lying down Resp: Denies: shortness of breath, productive cough, non-productive cough, wheezing, stridor, pain on inspiration, change in phlegm color, coughing up blood or chest congestion GI: Denies: abdominal pain, nausea, vomiting, vomiting blood, coffee grounds in vomit, difficulty swallowing, heartburn/indigestion, diarrhea, constipation, cramping, change in stool character, blood in stool or black tarry stool : Denies: flank pain, painful urination, urinary frequency, urinary urgency, urinary hesitancy or blood in urine Musc: Denies: neck pain, back pain, extremity pain, joint swelling, joint warmth or deformity Neuro: Denies: headache, numbness in extremities, weakness in extremities, c hanges in sensation, difficulty walking, frequent falls, dizziness, vertigo, behavioral changes, slurred speech or seizure-like activity Psych: Denies: anxiety, depression, suicidal ideation or homicidal ideation Endo: Denies: excessive urination, excessive thirst, tired all the time, cold intolerance or hot flashes Laith/Lymph: Denies: easy bruising or easy bleeding Medications/Allergies Home Medications Medication Instructions Recorded Confirmed Last Taken Type magnesium PO DAILY 02/10/20 02/10/20 15:30 History Allergies Allergy/AdvReac Type Severity Reaction Status Date / Time erythromycin base Allergy ALGY-Hives Verified 01/29/20 12:48 PFSH Acute PFSH: Medical History CAD (coronary artery disease) Diabetes mellitus treated with oral medication Elevated LFTs History of throat cancer Hyperlipemia Hypertension Hypothyroid Ischemic cardiomyopathy Lumbar pain with radiation down both legs Myocardial infarction Nocturia Nodule of right lung Onychomycosis of toenail Right leg DVT Seasonal allergies Shortness of breath Sleep apnea Supraventricular tachycardia Surgical History History of heart artery stent September 2019: LAD x2 Family History Father CAD (coronary artery disease) Brother Cancer Sister Lung disease Denies family history of Diabetes Clotting disorder Dementia Hyperlipidemia Psychiatric illness Chronic kidney disease (CKD) Suicide Anesthesia complication Bleeding disorder Family history of premature coronary artery disease Hypertension Stroke Social History Smoking and tobacco status: never smoked Second hand smoke exposure: No Lives independently: Yes Household members: significant other Marital status: service: Yes Current occupational status: retired History of recent travel: No Current gender identity: Male Vitals/I&O/Wt Last Vital Signs Pulse 64 02/10/20 23:00 Resp 24 H 02/10/20 23:00 BP 124/74 02/10/20 23:00 Pulse Ox 94 02/10/20 23:00 Weight last 48 hrs Weight 109.316 kg Physical Exam Narrative: EXAM NARRATIVE: GEN: Awake, alert and oriented, no acute distress CVS: S1S2 N RS: CTA B/L Abd: Soft, nt/nd , bs+ 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: no focal neuro deficits Data : 02/10/20 18:57 02/10/20 18:30 A&P Assessment and plan (1) Ischemic cardiomyopathy: Status: Chronic Code(s): I25.5 - Ischemic cardiomyopathy (2) Diabetes mellitus treated with oral medication: Status: Chronic Code(s): E11.9 - Type 2 diabetes mellitus without complications; 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 (3) Myocardial infarction: Status: Acute Code(s): I21.9 - Acute myocardial infarction, unspecified (4) History of heart artery stent: Status: Acute Code(s): Z95.5 - Presence of coronary angioplasty implant and graft (5) Supraventricular tachycardia: Status: Acute Code(s): I47.1 - Supraventricular tachycardia (6) Hypertension: Status: Chronic Code(s): I10 - Essential (primary) hypertension (7) CAD (coronary artery disease): Status: Chronic Code(s): I25.10 - Atherosclerotic heart disease of [place] coronary artery without angina pectoris Additional A&P Information Admit to CSU for close cardiac monitoring 1. supraventricular tachycardia Currently converted to sinus rhythm after cardizem 15mg IVP. Continue Carvedilol 6.25mg BID 2. NSTEMI : Troponin 2 hr delta 13, increased at 6 hrs to ~130. Patient currently asymptomatic in terms of chest pain. Ekg looked concerning for evolving ST-T wave changes Patient strated on Lovenox full dose q12h Continue ASA, plavix Cardiology consult with Dr. Parth Burt NPO for now in case of any intervention procedures tomorrow 3. Known CAD Continue DAPT, coreg. Holding lisinopril for now in case planned for cardiac cath tomorrow Gentle IVF hydration @50 cc/hr 4. Hypothyroidim: continue levothyroxine 5. DM: low dose insulin sliding scale 6. Sleep apnea: had recent outpatient sleep study and was ordered CPAP, however states that paperwork lost between 2 PCPs. director of residential services consult for same. 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
--- NOTE | 2020-02-10 23:56 | PC.NURSE ---
Patient arrived from ER via wheelchair. Patient vitals obtained and placed on telemetry. Patient is AxO x4. Patient oriented to the room and call light is within reach. Will continue to monitor.
[2020-02-11] VITALS (10 sets, daily range): BP systolic 116–134; BP diastolic 66–87; PULSE 51–84; RESP 13–20; TEMP 36.4–36.8; O2SAT 90–95
--- NOTE | 2020-02-11 00:17 | ECG_ITS ---
Measurements Intervals [place] Rate: 54 P: 54 IN: 217 QRS: 66 QRSD: 109 T: 89 QT: 420 QTc: 401 SINUS BRADYCARDIA WITH FIRST DEGREE AV BLOCK Compared to ECG 01/21/2020 22:19:57 Sinus rhythm no longer present Electronically Signed On 02-11-2020 9:12:36 CDT by Tito Chen [email or web address]
[2020-02-11 01:07] LABS: Troponin 5 6HR 157.3 ng/mL (0-15); Troponin 5 6HR Delta 134.3 ng/L (0-12)
[2020-02-11] MEDS: sodium chloride 0.9% 1,000 ML 100 ML IV (02:00)
[2020-02-11] MEDS: enoxaparin 120 mg/0.8 mL Syringe 110 MG SUBCUT ×2 (02:01→14:16)
[2020-02-11 05:13] LABS: Basophils % 0.5 %; Eosinophils % 12.3 %; Hematocrit 42.7 % (42.0-52.0); Hemoglobin 14.1 g/dL (11.7-16.6); Lymphocytes # 2.8 10^3/uL (0.8-4.8); Lymphocytes % 33.1 %; Mean Platelet Volume 11.2 fL (7.4-10.4); Monocytes # 0.6 10^3/uL (0.2-0.9); Monocytes % 7.7 %; Neutrophils # 3.9 10^3/uL (1.8-7.7); Neutrophils % 46.3 %; Nucleated Red Blood Cells % 0 %; Platelet Count 175 10^3/cmm (130-400); White Blood Count 8.4 10^3/uL (4.0-10.0)
[2020-02-11 05:39] LABS: Anion Gap 12.8 (5-19); Blood Urea Nitrogen 19 mg/dL (8-23); Calcium 9.5 mg/dL (8.5-10.5); Carbon Dioxide 28 mmol/L (22-29); Chloride 103 mmol/L (98-107); Glucose 107 mg/dL (65-115); Osmolality Calculated 287 mOsm/kg (285-295); Potassium 3.8 mmol/L (3.5-5.1); Sodium 140 mmol/L (136-145)
[2020-02-11] MEDS: FUROsemide 20 mg Tablet PO (06:14)
[2020-02-11 06:18] LABS: Glucose Point of Care 118 mg/dL (70-110)
[2020-02-11] MEDS: atorvastatin 40 mg Tablet PO (08:45)
[2020-02-11] MEDS: fluticasone nasal spray 16gm Btl 1 SPRAY NASAL (08:45)
[2020-02-11] MEDS: tamsulosin 0.4 mg Capsule PO (08:45)
[2020-02-11] MEDS: carvedilol 6.25 mg Tablet PO (08:46)
[2020-02-11] MEDS: aspirin 81 mg EC Tablet PO (08:46)
[2020-02-11] MEDS: clopidogrel 75 mg Tablet PO (08:46)
[2020-02-11] MEDS: levothyroxine 150 mcg Tablet 75 MCG PO (08:46)
[2020-02-11] MEDS: gabapentin 300 mg Capsule PO ×2 (08:46→14:16)
--- NOTE | 2020-02-11 09:57 | PM.CONSULT ---
Providers/Reason For Consult Consulting Physican/Specialty*: LAINA Burt MD/cardiology Reason for Consult*: Patient with SVT, recent myocardial infarction, status post PCI of the LAD/diagonal Attending Physician: Thom Pyle MD Primary Care Provider: Sally Min MD History of Present Illness History of Present Illness Mike Esposito is a 74 year old male is admitted to hospital through the emergency room, where he presented with complaints of palpitations and shortness of breath. This patient is known to have coronary artery disease, supraventricular tachycardia, high blood pressure, dyslipidemia and diabetes. He apparently was in his baseline state of health up until yesterday afternoon when he had an episode of palpitation while being outside. According to the patient, he had a rather sudden onset of tight feeling in the chest and feeling of cold air in the lung. Because of this, he came inside the house. His heart was beating fast at that time. His systolic blood pressure was in the 90s. Repeat blood pressure showed systolic blood pressure in the 80s. He was getting little more short of breath and weak at that time. He might have waited for a total of an hour and a half to see with his symptoms improved. Since there was no improvement, he asked his girlfriend to take him to the hospital. In the emergency room, he was found to be in SVT with a heart rate in the 140s. He was started on IV Cardizem. He spontaneously converted to sinus rhythm. Currently he stays in the sinus rhythm. Patient had a more or less similar symptoms on the second of this month for which he was admitted to this hospital. At that time, he was found to be in SVT. He also had elevated troponin T. Subsequently had a myocardial perfusion imaging. He was found to have mostly areas of fixed defects with a very small areas of reversible defect in the distribution of the left and descending artery, suggestive of myocardial scarring in the distribution of the left and descending artery with a possible small areas of lulu-infarction ischemia. He had a troponin T, delta of 185. History of these findings, it was opted to treat him medically. According the patient, he has been compliant with the medications this time, even though he was noncompliant during the last hospital admission. In September 2019, he was admitted to the hospital with features of acute ST relation myocardial infarction. He was found to have total occlusion of the left anterior descending artery. He underwent a primary angioplasty and stent placement of the LAD lesion. He also had balloon angioplasty of the diagonal artery lesion. He had a mild to moderate disease in the other vessels . Based on the myocardial perfusion imaging, it was opted to treat him medically. Review of Systems Const: Reports: other (Anorexia); Denies: fever, chills, change in appetite, fatigue or night sweats Eyes: Denies: change in vision, blurry vision or eye discomfort ENMT: Denies: bleeding gums, nose bleeds or other (Spinning Sensation, Trouble Swallowing) Card: Denies: syncope, pre-syncope, shortness of breath when lying down or leg pain with exertion Resp: Reports: shortness of breath; Denies: productive cough, change in phlegm color or coughing up blood GI: Denies: vomiting, vomiting blood, bloating, blood in stool or black tarry stool : Denies: blood in urine or other (Gynecomastia) Musc: Denies: neck pain, extremity pain, extremity swelling, redness, muscle cramps, muscle weakness or other (Neck Pain or Swollen Glands) Skin/Breast: Denies: rash, itching, redness, new lesion, changes in skin color, yellow skin, nail changes or breast mass/lump Neuro: Denies: headache, changes in sensation, lack of coordination, frequent falls, dizziness, vertigo, seizure-like activity or other (TIA, Numbness) Psych: Reports: other (Delusions, Disorientation, or Insomnia); Denies: visual hallucinations, auditory hallucinations or tactile hallucinations Endo: Denies: excessive urination, excessive thirst or other (Abnormal Hair Loss) Laith/Lymph: Denies: easy bruising All/Imm: Denies: hives Meds/Allergies Home Medications and Allergies Home Medications Medication Instructions Recorded Confirmed Type clopidogrel 75 mg tablet 75 mg PO DAILY tab 11/21/19 02/10/20 History furosemide 20 mg tablet 20 mg PO QAM 11/21/19 02/10/20 History atorvastatin 40 mg tablet 40 mg PO DAILY 12/25/19 02/10/20 History gabapentin 300 mg capsule 300 mg PO TID 12/25/19 02/10/20 History levothyroxine 75 mcg tablet 75 mcg PO DAILY #30 tab 12/25/19 02/10/20 Rx aspirin 81 mg tablet,delayed 81 mg PO DAILY 01/11/20 02/10/20 History release lisinopril 5 mg tablet 2.5 mg PO DAILY tab 01/11/20 02/10/20 History potassium chloride 10 mEq 10 meq PO BID tab 01/11/20 02/10/20 History tablet,extended release fluticasone propionate 1 spray NASAL BID #30 ml 01/23/20 02/10/20 Rx levalbuterol tartrate 45 1 inh INHALATION Q6H PRN #15 gm 01/29/20 02/10/20 Rx mcg/actuation aerosol inhaler carvedilol 6.25 mg tablet 6.25 mg PO BID #60 tab 02/07/20 02/10/20 Rx metformin 500 mg tablet 500 mg PO BID #60 tab 02/07/20 02/10/20 Rx tamsulosin 0.4 mg capsule 0.4 mg PO DAILY #30 cap 02/07/20 02/10/20 Rx magnesium PO DAILY 02/10/20 History Allergies Allergy/AdvReac Type Severity Reaction Status Date / Time erythromycin base Allergy ALGY-Hives Verified 01/29/20 12:48 Current Medications Current Medications Generic Name Dose Route Start Last Admin Trade Name Freq PRN Reason Stop Dose Admin Aspirin 81 mg 02/11/20 09:00 02/11/20 08:46 Aspirin Ec PO 81 mg DAILY LEOPOLDO Administration Atorvastatin Calcium 40 mg 02/11/20 09:00 02/11/20 08:45 Lipitor PO 40 mg DAILY LEOPOLDO Administration Carvedilol 6.25 mg 02/11/20 09:00 02/11/20 08:46 Coreg PO 6.25 mg BID LEOPOLDO Administration Clopidogrel Bisulfate 75 mg 02/11/20 09:00 02/11/20 08:46 Plavix PO 75 mg DAILY LEOPOLDO Administration Enoxaparin Sodium 110 mg 02/11/20 01:30 02/11/20 02:01 Lovenox SUBCUT 110 mg Q12H LEOPOLDO Administration Fluticasone Propionate 1 spray 02/11/20 09:00 02/11/20 08:45 Flonase NASAL 1 spray BID LEOPOLDO Administration Furosemide 20 mg 02/11/20 06:00 02/11/20 06:14 Lasix PO 20 mg QAM LEOPOLDO Administration Gabapentin 300 mg 02/11/20 09:00 02/11/20 08:46 Neurontin PO 300 mg TID LEOPOLDO Administration Insulin Aspart 0 unit 02/11/20 08:00 02/11/20 07:11 Novolog SUBCUT Not Given WM&BEDTIME LEOPOLDO Protocol Levothyroxine Sodium 75 mcg 02/11/20 09:00 02/11/20 08:46 Synthroid PO 75 mcg DAILY LEOPOLDO Administration Tamsulosin HCl 0.4 mg 02/11/20 09:00 02/11/20 08:45 Flomax PO 0.4 mg DAILY LEOPOLDO Administration PFSH Acute PFSH: Medical History Atherosclerotic heart disease of [place] coronary artery with other forms of angina pectoris Benign essential hypertension with target blood pressure below 140/90 CAD (coronary artery disease) Diabetes mellitus treated with oral medication Dyslipidemia (high LDL; low HDL) Elevated LFTs History of throat cancer Hyperlipemia Hypertension Hypothyroid Ischemic cardiomyopathy Lumbar pain with radiation down both legs Myocardial infarction Nocturia Nodule of right lung Onychomycosis of toenail Reactive airway disease with wheezing Right leg DVT Seasonal allergies Shortness of breath Sleep apnea Supraventricular tachycardia Troponin level elevated Surgical History History of heart artery stent September 2019: LAD x2 Family History Father CAD (coronary artery disease) Brother Cancer Sister Lung disease Denies family history of Diabetes Clotting disorder Dementia Hyperlipidemia Psychiatric illness Chronic kidney disease (CKD) Suicide Anesthesia complication Bleeding disorder Family history of premature coronary artery disease Hypertension Stroke Social History Smoking and tobacco status: never smoked Second hand smoke exposure: No Lives independently: Yes Household members: significant other Marital status: service: Yes Current occupational status: retired History of recent travel: No Current gender identity: Male Vitals/I&O/Wt Last Vital Signs Temp 97.5 F L 02/11/20 07:22 Pulse 61 02/11/20 07:22 Resp 20 H 02/11/20 07:22 BP 134/71 02/11/20 07:22 Pulse Ox 93 02/11/20 07:22 02/10/20 02/11/20 02/11/20 22:59 06:59 14:59 Intake Total 300 / 300 Balance 300 / 300 Weight last 48 hrs Weight 241 lb Physical Exam Narrative: EXAM NARRATIVE: GENERAL: The patient is alert and oriented times three. Not in any acute distress. HEENT: No significant pallor, icterus or lymphadenopathy. The pupils are reactant to light. Oral cavity: There are no mucous membrane lesions. Funduscopic examination: The fundus is not visualized NECK: Trachea appears to be central. No masses noted. No JVD or thyromegaly appreciated. No carotid bruit. RESPIRATORY: Chest is symmetrical. No intercostals muscle retraction or any accessory muscle activation. There is no chest wall tenderness. Breath sounds are heard bilaterally. Bilateral expiratory wheezing and some coarse crackles. No evidence of consolidation BREASTS: Deferred. HEART: The PMI could not be palpated. No other palpable precordial events. S1 and S2 are normal. No S3 or S4 heard. No pericardial rub or any click heard. ABDOMEN: No vessel pulsations or distention. No tenderness. No organomegaly appreciated. No abdominal bruit. Bowel sounds are normally heard. : Deferred. RECTAL: Deferred. LYMPHATIC: No lymphadenopathy noted in the neck or groin. EXTREMITIES: No significant edema or cyanosis. Peripheral pulses are palpable and fairly good volume and amplitude. MUSCULOSKELETAL: No acute joint deformities or swelling SKIN: There are no significant scars or skin rash noted. NEUROPSYCHIATRIC: The patient is alert and oriented x3. Appears to be in a good mood. The higher functions are grossly within normal limits. No tremors or rigidity noted. Data Imaging^: Myocardial perfusion imaging: My impression: Was done on 01/23/2020 1. Small sized perfusion abnormality of mid septal, apical septal and apical lateral woods with reversibility noted in apical woods on stress images. 2. This is suggestive of old myocardial infarction with small area of lulu- infarct ischemia in distal left anterior descending artery territory. 3. The left ventricular ejection fraction is mildly reduced with a value of 50%. 4. There is mild apical hypokinesis. 5. No prior similar studies to compare. CTA Chest: Radiologist's impression: 1. No visible pulmonary embolism. 2. Stable 2 very small pulmonary nodules right upper lobe. No change since 09/30/2018. For patients at low risk (minimal or absent history of smoking and of other known risk factors), no routine follow-up is indicated. For patients at high risk (history of smoking or of other known risk factors), consider optional CT at 12 months. (Angelita et al., Fleischner Society, 2017). 3. Two vessel coronary disease with extensive involvement of the left main and left anterior descending artery. CXR: My impression: Borderline cardiac silhouette with no lung infiltrate. No acute pathology noted. EKG^: EKG 1: My Interpretation: Normal sinus rhythm with early repolarization changes. Nonspecific T wave changes in the high lateral leads. A&P Assessment and plan (1) Troponin level elevated: Patient's elevated troponin T, most likely related to the tachyarrhythmia. Apparently he had a delta of 185 during the last hospital admission. His myocardial perfusion imaging was unremarkable except for a very small areas of possible lulu-infarction ischemia, in the distribution of the left and descending artery. He had the episode of tachyarrhythmia at more or less similar circumstances. Never had any chest pain with this. His compliance with medications somewhat questionable. His respiratory distress, could be a contributing factor for the tachyarrhythmia. The repeat echocardiogram today revealed an ejection fraction, within normal limits. Apparently his ejection fraction was around 40% in September of last year. Status: Acute Code(s): R79.89 - Other specified abnormal findings of blood chemistry (2) Atherosclerotic heart disease of [place] coronary artery with other forms of angina pectoris: Since the patient has no specific symptoms of coronary insufficiency, may not require any further investigations at this time. Advised to continue on the current medications. Importance of compliance to diet and exercise were discussed which the patient seems to understand well. The implications of the recent myocardial perfusion imaging were once again discussed. Status: Acute Code(s): I25.118 - Atherosclerotic heart disease of [place] coronary artery with other forms of angina pectoris (3) Benign essential hypertension with target blood pressure below 140/90: Blood pressure is fairly under control. May continue on the current medications except for the Coreg Status: Acute Code(s): I10 - Essential (primary) hypertension (4) Dyslipidemia (high LDL; low HDL): May continue on the current medications Status: Acute Code(s): E78.5 - Hyperlipidemia, unspecified (5) Diabetes mellitus treated with oral medication: Aggressive management of the diabetes may be continued. 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 May continue on the current medications. Status: Acute Qualifiers: Asthma severity: moderate Asthma complication type: with acute exacerbation Asthma persistence: persistent Qualified Code(s): J45.41 - Moderate persistent asthma with (acute) exacerbation Code(s): J45.909 - Unspecified asthma, uncomplicated Additional A&P Information Since the patient has not had any chest pain or other symptoms of coronary insufficiency, it may be appropriate to continue the medical treatment at this time. The reactive airway disease, causing respiratory distress, which in turn causing the arrhythmia is a concern. EKG changes as mentioned above. Consult Attestations Medical Necessity Statement: May be closely monitored on telemetry. If he continues to remain stable with the troponin T trending downwards, possible discharge home this evening or in the morning. Follow-up appointments with Dr. 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
--- NOTE | 2020-02-11 10:05 | USCV_ITS ---
Mike Esposito Age: 74 Gender: M : 1945 Exam Date: 02/11/2020 10:32 Ordering Phys: Sujey Burt MD ([email or web address]) Technologist: aSndrita Kitchen Exam Location: [facility] Indication: Arrythmia and elevated enzymes BP: 134 / 71 HR: 55 Rhythm: Sinus bradycardia Technical Quality: Suboptimal MEASUREMENTS (Male / Female) Normal Values 2D ECHO LV Diastolic Diameter PLAX 4.1 cm 4.2 - 5.9 / 3.9 - 5.3 cm LV Systolic Diameter PLAX 2.0 cm LV Chamber Size 3.2 cm IVS Diastolic Thickness 2.0 cm 0.6 - 1.0 / 0.6 - 0.9 cm IVS Systolic Thickness 1.7 cm LVPW Diastolic Thickness 0.9 cm 0.6 - 1.0 / 0.6 - 0.9 cm LVPW Systolic Thickness 1.1 cm RV Chamber Size 2.2 cm LV Ejection Fraction 2D Teich 82.6 % LV Ejection Fraction MOD 2C 52.2 % LV Ejection Fraction 2C AL 51.7 % LA Width 2.1 cm LA Height 4.6 cm RA Width 2.4 cm RA Height 5.5 cm M-MODE LV Diastolic Diameter MM 5.4 cm 4.2 - 5.9 / 3.9 - 5.3 cm LV Systolic Diameter MM 3.8 cm LV Ejection Fraction MM Teich 57.5 % IVS Diastolic Thickness MM 1.6 cm 0.6 - 1.0 / 0.6 - 0.9 cm IVS Systolic Thickness MM 1.8 cm LVPW Diastolic Thickness MM 1.5 cm 0.6 - 1.0 / 0.6 - 0.9 cm LVPW Systolic Thickness MM 1.8 cm FINDINGS Left Ventricle Normal left ventricular size and systolic function, EF 57 %. No regional wall motion abnormalities. Right Ventricle Normal right ventricular size and systolic function. Right Atrium The right atrium is normal in size. Left Atrium The left atrium is normal in size. Mitral Valve Thickened mitral valve. Aortic Valve Thickened aortic valve. Tricuspid Valve No gross abnormalities noted Pulmonic Valve No gross abnormalities noted Pericardium Normal pericardium without effusion. Aorta Normal aortic annulus size. CONCLUSIONS Normal left ventricular size and systolic function, EF 57 %. No regional wall motion abnormalities. Thickened mitral valve. Thickened aortic valve. There is no pericardial effusion. There are no intracardiac masses. Compared to study from 10/06/2019, there is improvement in the LV ejection fraction Dr Sujey Burt MD FACC (Electronically Signed) Final Date: 11 February 2020 13:01 S
[2020-02-11] MEDS: predniSONE 20 mg Tablet 40 MG PO (10:13)
[2020-02-11] MEDS: doxycycline 100 mg Tablet PO (10:13)
[2020-02-11 11:35] LABS: Glucose Point of Care 124 mg/dL (70-110)
--- NOTE | 2020-02-11 13:03 | P.PN_ITS ---
Subjective Subjective: Interval history: Patient has complaints of wheezing, sinus congestion, mucus plugging in the back of his throat. 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 But states that recently, he has been producing a really mucousy discharge, specially the back of his throat, is been tried to hack it up, but it is really thick, sometimes uses foreign objects to try to will release mucus contents. Is having sinus congestion, sinus tenderness, wheezing. Denies smoking. No history of asthma. Has COPD. Does state that cold air makes his wheezing worse. Patient denies any chest pain currently, no shortness of breath Vitals/I&O/Wt Last Vital Signs Temp 97.9 F 02/11/20 10:00 Pulse 51 L 02/11/20 10:28 Resp 18 02/11/20 10:28 BP 119/66 02/11/20 12:09 Pulse Ox 95 02/11/20 10:28 02/10/20 02/11/20 02/11/20 22:59 06:59 14:59 Intake Total 300 / 300 Balance 300 / 300 Weight last 48 hrs Weight 109.316 kg Physical Exam Const: COMMON NORMALS: no apparent distress and oriented x3 HENMT: COMMON NORMALS: normocephalic HEAD & SCALP: normocephalic Neck/C-Spine: COMMON NORMALS: no JVD Resp: COMMON NORMALS: normal respiratory effort, no retractions, no use of accessory muscles and clear to auscultation bilaterally AUSCULTATION: clear to auscultation bilaterally Cardio: COMMON NORMALS: no JVD, regular rate, regular rhythm, S1 normal heart sound and S2 normal heart sound RATE: regular rate RHYTHM: regular rhythm HEART SOUNDS: S1 normal and S2 normal GI: COMMON NORMALS: normal to inspection, nondistended, normoactive bowel sounds, soft to palpation, non-tender, no hepatosplenomegaly, no masses and no bruits PALPATION: Yes soft and Yes no hepatosplenomegaly Extremity: COMMON NORMALS: normal capillary refill, no clubbing, cyanosis or edema, no calf tenderness and no pedal edema Neuro: COMMON NORMALS: oriented x3 Psych: COMMON NORMALS: mental status grossly normal Data : 02/11/20 04:33 02/11/20 04:33 A&P Assessment and plan (1) Ischemic cardiomyopathy: Status: Chronic Code(s): I25.5 - Ischemic cardiomyopathy (2) Diabetes mellitus treated with oral medication: Status: Chronic Code(s): E11.9 - Type 2 diabetes mellitus without complications; Z79.84 - custodial (current) use of oral hypoglycemic drugs (3) Myocardial infarction: Status: Acute Code(s): I21.9 - Acute myocardial infarction, unspecified (4) History of heart artery stent: Status: Acute Code(s): Z95.5 - Presence of coronary angioplasty implant and graft (5) Supraventricular tachycardia: Status: Acute Code(s): I47.1 - Supraventricular tachycardia (6) Hypertension: Status: Chronic Code(s): I10 - Essential (primary) hypertension (7) CAD (coronary artery disease): Status: Chronic Qualifiers: Associated angina: without angina Coronary Disease-Associated Artery/ Lesion type: unspecified vessel or lesion type [place] vs. transplanted heart: nondalton heart Qualified Code(s): I25.10 - Atherosclerotic heart disease of [place] coronary artery without angina pectoris Code(s): I25.10 - Atherosclerotic heart disease of [place] coronary artery without angina pectoris (8) Sinusitis: Status: Acute Code(s): J32.9 - Chronic sinusitis, unspecified Additional A&P Information Admit to CSU for close cardiac monitoring 1. supraventricular tachycardia Currently converted to sinus rhythm after cardizem 15mg IVP. Continue Carvedilol 6.25mg BID 2. NSTEMI : Troponin 2 hr delta 13, increased at 6 hrs to ~130. Patient currently asymptomatic in terms of chest pain. Ekg looked concerning for evolving ST-T wave changes Patient strated on Lovenox full dose q12h Continue ASA, plavix Cardiology consult with Dr. Parth Burt NPO for now in case of any intervention procedures tomorrow 3. Known CAD Continue DAPT, coreg. Holding lisinopril for now in case planned for cardiac cath tomorrow Gentle IVF hydration @50 cc/hr 4. Hypothyroidim: continue levothyroxine 5. DM: low dose insulin sliding scale 6. Sleep apnea: had recent outpatient sleep study and was ordered CPAP, however states that paperwork lost between 2 PCPs. instructional services librarian consult for same. #7 sinusitis and COPD exacerbation: Albuterol, prednisone, doxycycline Full code ppx: full dose lovenox Attestations Medical Necessity Statement*: Requires continued hospitalization for chest pain Coding Level of Care Code Acute Electronic Wirer for Chg Fwd Diagnoses Ischemic cardiomyopathy I25.5 Diabetes mellitus treated with oral medication E11.9; Z79.84 Myocardial infarction I21.9 History of heart artery stent Z95.5 Supraventricular tachycardia I47.1 Hypertension I10 CAD (coronary artery disease) I25.10 Associated angina: without angina Coronary Disease-Associated Artery/Lesion type: unspecified vessel or lesion type [place] vs. transplanted heart: nondalton heart Sinusitis J32.9
[2020-02-11 14:25] LABS: Troponin T (5th) Once 87 ng/mL (0-15)
--- NOTE | 2020-02-11 15:08 | PM.DCS ---
Discharge Providers Date of Admission: 02/10/20 22:11 Date of Discharge: February 11, 2020 Attending Provider at Admission: Li Mosqueda MD Attending Provider at Discharge: Thom Pyle MD Primary Care Provider: Sally Min MD Diagnoses at Discharge Discharge Diagnosis (1) Troponin level elevated: Status: Acute (2) Atherosclerotic heart disease of [place] coronary artery with other forms of angina pectoris: Status: Acute (3) Benign essential hypertension with target blood pressure below 140/90: Status: Acute (4) Dyslipidemia (high LDL; low HDL): Status: Acute (5) Diabetes mellitus treated with oral medication: Status: Chronic (6) Reactive airway disease with wheezing: Status: Acute Qualifiers: Asthma severity: moderate Asthma persistence: persistent Asthma complication type: with acute exacerbation Qualified Code(s): J45.41 - Moderate persistent asthma with (acute) exacerbation Reason for Visit Reason for Visit: Reason For Visit: cp Hospital Course Discharge Summary: This is a 74-year-old male with a past medical history of CAD status post stenting of LAD September 2019, balloon angioplasty of diagonal artery, history of SVT, hypertension, hyperlipidemia, COPD, obh-axkixcn-jrheddeeg type 2 diabetes mellitus, BPH, nonallergic rhinitis, diabetic peripheral neuropathy, history of throat cancer who presents to the emergency room due to complaints of chest pain. Patient was admitted for chest pain and NSTEMI and SVT.Patient has a history of CAD status post stenting to LAD September 2019, balloon angioplasty of diagonal artery. He also had a myocardial perfusion imaging which was unremarkable except for a very small area of possible lulu-infarct ischemia in the distribution of the left anterior descending artery. Patient did not have any active chest pain during admission, his troponin baseline was 23, 120-minute 36.97 with a delta of 13.97, 6-hour of 157.3 with a delta of 134.3, and a repeat troponin 14 hours later of 87. EKG showed no acute ST-T wave changes. Echocardiogram showed ejection fraction 57%, no regional wall motion abnormalities. Cardiology was consulted, who felt patient's troponin elevation was likely secondary to tachyarrhythmia and COPD exacerbation. Patient was discharged on his home aspirin, Plavix, statin, with close follow-up with cardiology in 1 to 2 weeks. In addition for his SVT was discharged on Metroprolol 25 mg twice daily. COPD exacerbation, had wheezing on exam, had complains of sinusitis, sinus tenderness, did not require oxygen. Treated with prednisone, albuterol, doxycycline, clinically improved. Patient was discharged on a prednisone burst, doxycycline with a close follow-up with primary care provider in 1 week. 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 I have discharged the patient on Xyzal, patient was also referred to ENT for nasal laryngeal endoscopy. Physical Exam Const: COMMON NORMALS: no apparent distress and oriented x3 HENMT: COMMON NORMALS: normocephalic HEAD & SCALP: normocephalic Neck/C-Spine: COMMON NORMALS: no JVD Resp: COMMON NORMALS: normal respiratory effort, no retractions, no use of accessory muscles and clear to auscultation bilaterally AUSCULTATION: clear to auscultation bilaterally Cardio: COMMON NORMALS: no JVD, regular rate, regular rhythm, S1 normal heart sound and S2 normal heart sound RATE: regular rate RHYTHM: regular rhythm HEART SOUNDS: S1 normal and S2 normal GI: COMMON NORMALS: normal to inspection, nondistended, normoactive bowel sounds, soft to palpation, non-tender, no hepatosplenomegaly, no masses and no bruits PALPATION: Yes soft and Yes no hepatosplenomegaly Extremity: COMMON NORMALS: normal capillary refill, no clubbing, cyanosis or edema, no calf tenderness and no pedal edema Neuro: COMMON NORMALS: oriented x3 Psych: COMMON NORMALS: mental status grossly normal Discharge Data Data Completed and Pending: Completed Studies During Hospitalization Category Date Time Status CT angio chest PE protcl [id number] Stat Cat Scan 02/10/20 20:36 Completed XR chest 1V wendy ble [id number] Stat Exams 02/10/20 18:16 Completed US echo limited [ CV echo limited 93 308] Routine Ultrasound 02/11/20 10:05 Completed Pending at discharge Category Date Time Status Complete Blood Co unt w/Auto AM LABS Lab 02/12/20 04:00 Ordered Complete Blood Co unt w/Auto AM LABS Lab 02/13/20 04:00 Ordered Complete Blood Co unt w/Auto AM LABS Lab 02/14/20 04:00 Ordered Comprehensive Met abolic Panel AM [facility] BS Lab 02/12/20 04:00 Ordered Comprehensive Met abolic Panel AM [facility] Lab 02/13/20 04:00 Ordered Comprehensive Met abolic Panel AM [facility] Lab 02/14/20 04:00 Ordered Labs from last 24 hours 02/11/20 02/11/20 02/11/20 13:51 11:29 06:13 WBC RBC Hgb Hct MCV MCH MCHC RDW Plt Count MPV Neut % (Auto) Lymph % (Auto) [facility] % (Auto) Eos % (Auto) Baso % (Auto) Neut # (Auto) Lymph # (Auto) [facility] # (Auto) Eos # (Auto) Baso # (Auto) Nucleated RBC % (a uto) Nucleated RBCs # PT INR D-Dimer Sodium Potassium Chloride Carbon Dioxide Anion Gap BUN Creatinine Glucose POC Glucose 124 118 Calculated Osmolal ity Calcium Total Bilirubin AST ALT Alkaline Phosphata se Troponin I 6 Hour Troponin I Hi Sens Del Troponin T Gen 5 n g/L 87 H Troponin T Baselin e Troponin T 120 Min [place] Delta Troponin T NT-Pro-B Natriuret Pep Total Protein Albumin Globulin Lipase 02/11/20 02/11/20 02/11/20 04:33 04:33 00:17 WBC 8.4 RBC 4.40 Hgb 14.1 Hct 42.7 MCV 97.0 H MCH 32.0 MCHC 33.0 RDW 12.0 L Plt Count 175 MPV 11.2 H Neut % (Auto) 46.3 Lymph % (Auto) 33.1 [facility] [place] [facility] % (Auto) 7.7 Eos % (Auto) 12.3 Baso % (Auto) 0.5 Neut # (Auto) 3.9 Lymph # (Auto) 2.8 [facility] [place] [facility] # (Auto) 0.6 Eos # (Auto) 1.0 H Baso # (Auto) 0.0 Nucleated RBC % (a uto) 0 Nucleated RBCs # 0.0 PT INR D-Dimer Sodium 140 Potassium 3.8 Chloride 103 Carbon Dioxide 28 Anion Gap 12.8 BUN 19 Creatinine 1.0 Glucose 107 POC Glucose Calculated Osmolal ity 287 Calcium 9.5 Total Bilirubin AST ALT Alkaline Phosphata se Troponin I 6 Hour 157.3 H Troponin I Hi Sens Del 134.3 H* Troponin T Gen 5 n g/L Troponin T Baselin e Troponin T 120 Min [place] Delta Troponin T NT-Pro-B Natriuret Pep Total Protein Albumin Globulin Lipase 02/10/20 02/10/20 02/10/20 20:26 18:57 18:30 WBC 9.0 RBC 4.62 Hgb 15.3 Hct 45.1 MCV 97.6 H MCH 33.1 MCHC 33.9 RDW 12.1 Plt Count 180 MPV 10.9 H Neut % (Auto) 55.9 Lymph % (Auto) 28.0 [facility] [place] [facility] % (Auto) 5.4 Eos % (Auto) 10.0 Baso % (Auto) 0.4 Neut # (Auto) 5.0 Lymph # (Auto) 2.5 [facility] [place] [facility] # (Auto) 0.5 Eos # (Auto) 0.9 H Baso # (Auto) 0.0 Nucleated RBC % (a uto) 0 Nucleated RBCs # 0.0 PT INR D-Dimer 3.98 H Sodium Potassium Chloride Carbon Dioxide Anion Gap BUN Creatinine Glucose POC Glucose Calculated Osmolal ity Calcium Total Bilirubin AST ALT Alkaline Phosphata se Troponin I 6 Hour Troponin I Hi Sens Del Troponin T Gen 5 n g/L Troponin T Baselin e Troponin T 120 Min [place] 36.97 H Delta Troponin T 13.97 H* NT-Pro-B Natriuret Pep Total Protein Albumin Globulin Lipase 02/10/20 02/10/20 02/10/20 18:30 18:30 18:30 WBC RBC Hgb Hct MCV MCH MCHC RDW Plt Count MPV Neut % (Auto) Lymph % (Auto) [facility] % (Auto) Eos % (Auto) Baso % (Auto) Neut # (Auto) Lymph # (Auto) [facility] # (Auto) Eos # (Auto) Baso # (Auto) Nucleated RBC % (a uto) Nucleated RBCs # PT INR D-Dimer Sodium 140 Potassium 4.5 Chloride 102 Carbon Dioxide 26 Anion Gap 16.5 BUN 21 Creatinine 1.1 Glucose 181 H POC Glucose Calculated Osmolal ity 291 Calcium 9.5 Total Bilirubin 0.3 AST 27 ALT 21 Alkaline Phosphata se 66 Troponin I 6 Hour Troponin I Hi Sens Del Troponin T Gen 5 n g/L Troponin T Baselin e 23 H Troponin T 120 Min [place] Delta Troponin T NT-Pro-B Natriuret Pep 239 H Total Protein 7.1 Albumin 4.2 Globulin 2.9 Lipase 27 02/10/20 18:30 WBC RBC Hgb Hct MCV MCH MCHC RDW Plt Count MPV Neut % (Auto) Lymph % (Auto) [facility] % (Auto) Eos % (Auto) Baso % (Auto) Neut # (Auto) Lymph # (Auto) [facility] # (Auto) Eos # (Auto) Baso # (Auto) Nucleated RBC % (a uto) Nucleated RBCs # PT 13.80 H INR 1.02 D-Dimer Sodium Potassium Chloride Carbon Dioxide Anion Gap BUN Creatinine Glucose POC Glucose Calculated Osmolal ity Calcium Total Bilirubin AST ALT Alkaline Phosphata se Troponin I 6 Hour Troponin I Hi Sens Del Troponin T Gen 5 n g/L Troponin T Baselin e Troponin T 120 Min [place] Delta Troponin T NT-Pro-B Natriuret Pep Total Protein Albumin Globulin Lipase Vitals: Last Vital Signs Temp 97.9 F 02/11/20 10:00 Pulse 67 02/11/20 15:05 Resp 16 02/11/20 15:05 BP 119/66 02/11/20 12:09 Pulse Ox 95 02/11/20 15:05 Discharge Plan Discharge Patient Disposition: Home, Self-Care Condition: Stable Prescriptions: New prednisone 20 mg Tablet 40 mg PO DAILY 5 Days Qty: 5 RF: 0 doxycycline monohydrate 100 mg Tablet 100 mg PO BID 7 Days Qty: 14 RF: 0 nitroglycerin 0.4 mg tablet, sublingual 0.4 mg SUBLINGUAL Q5M PRN (Reason: chest pain) 3 Days Qty: 3 RF: 0 Xyzal 5 mg tablet 5 mg PO DAILY PRN (Reason: allergy symptoms) 30 Days Qty: 30 RF: 0 metoprolol tartrate 25 mg tablet 25 mg PO BID 30 Days Qty: 60 RF: 0 Continued aspirin [Aspir-81] 81 mg tablet,delayed release (DR/EC) 81 mg PO DAILY RF: 0 clopidogrel [Plavix] 75 mg tablet 75 mg PO DAILY RF: 0 furosemide 20 mg tablet 20 mg PO QAM RF: 0 potassium chloride [Klor-Con 10] 10 mEq tablet extended release 10 meq PO BID RF: 0 lisinopril 5 mg tablet 2.5 mg PO DAILY RF: 0 gabapentin 300 mg capsule 300 mg PO TID RF: 0 atorvastatin 40 mg tablet 40 mg PO DAILY RF: 0 levothyroxine 75 mcg tablet 75 mcg PO DAILY Qty: 30 RF: 2 Xopenex HFA 45 mcg/actuation HFA aerosol inhaler 1 inh INHALATION Q6H PRN (Reason: shortness of breath or wheezing) Qty: 15 RF: 0 metformin 500 mg tablet 500 mg PO BID Qty: 60 RF: 1 tamsulosin [Flomax] 0.4 mg capsule 0.4 mg PO DAILY Qty: 30 RF: 2 fluticasone propionate 50 mcg/actuation Ethel,Suspension 1 spray nasal BID Qty: 30 RF: 0 magnesium 200 mg Tablet PO DAILY RF: 0 Discontinued carvedilol 6.25 mg tablet 6.25 mg PO BID Qty: 60 RF: 1 Discharge Orders: Discharge Order (Routine); Ordered 02/11/20 Ordered By: Thom Pyle Referrals: Yung Patel MD [Physician] - 1 month ([facility] will be calling to set an appointment with Dr. Patel. If you don't hear from them by Wednesday, please give them at call at [phone]) Sujey Burt MD [Physician] - 1 week ([facility] will be calling to set a cardiology followup. If you don't hear from them by Wednesday, please give them a call at [phone]) Sally Min MD [Primary Care Provider] - ([facility] will be calling to set up a hospital followup. If you don't hear from them by Wednesday, please call them at [phone]) Discharge Diet: Cardiac Discharge Activity: Resume usual activity Patient Instructions: Chest Pain (GEN), Acute Bacterial Rhinosinusitis (DC) Activity Restrictions/Additional Instructions: -If you repeat chest pain, chest palpitations come back to the emergency room -For your rhinosinusitis, use eyes all, prednisone, doxycycline as prescribed Tylenol -Please follow with primary care provider in 1 month -Use metoprolol 25 mg twice daily Discharge Attestations Time Spent in Discharge Care*: less than 30 min Status at Discharge: Cognitive status at discharge: cognitively intact, Behavioral status at discharge: cooperative, Quality Metrics Clinical Quality Measures During this hospital stay, did patient experience: None Coding Level of Care Code Acute Laboratory Equipment Cleaner for Chg Fwd Diagnoses Troponin level elevated R79.89 Atherosclerotic heart disease of [place] coronary artery with other forms of angina pectoris I25.118 Benign essential hypertension with target blood pressure below 140/90 I10 Dyslipidemia (high LDL; low HDL) E78.5 Diabetes mellitus treated with oral medication E11.9; Z79.84 Reactive airway disease with wheezing J45.41 Asthma severity: moderate Asthma persistence: persistent Asthma complication type: with acute exacerbation
== END 2020-02-11 16:21 | disposition home or self-care (01) | DRG 281 ==
LOC: ER 18:29 → CSU 02-11 00:26
PROVIDERS: Admitting Provider Student in an Organized Health Care Education/Training Program; Emergency Provider Emergency Medicine; PCP Family Medicine; Visit Provider Family Medicine
DX: I47.1 Supraventricular tachycardia (principal); I21.9 Acute myocardial infarction, unspecified; J45.41 Moderate persistent asthma with (acute) exacerbation; J44.1 Chronic obstructive pulmonary disease with (acute) exacerbation; I25.118 Atherosclerotic heart disease of native coronary artery with other forms of angina pectoris; I25.5 Ischemic cardiomyopathy; E78.5 Hyperlipidemia, unspecified; E11.9 Type 2 diabetes mellitus without complications; I10 Essential (primary) hypertension; E03.9 Hypothyroidism, unspecified; G47.33 Obstructive sleep apnea (adult) (pediatric); J32.9 Chronic sinusitis, unspecified; I25.2 Old myocardial infarction; Z95.5 Presence of coronary angioplasty implant and graft; Z79.84 Long term (current) use of oral hypoglycemic drugs; Z79.82 Long term (current) use of aspirin; Z79.890 Hormone replacement therapy; Z79.2 Long term (current) use of antibiotics; Z79.899 Other long term (current) drug therapy
CPT/HCPCS: 12345; 36415; 36416; 71045; 71275; 80048; 80053; 82962; 83690; 83880; 84484; 85025; 85378; 85610; 93005; 93010; 93308; 94640; 96372; 96375; 99284; J1650; J3490; J7030; J7512; J7611; Q9967

== ENCOUNTER 2020-05-06 19:21 | Emergency (ER) | payer MEDICARE, SELFPAY ==
[2020-05-06 19:33] VITALS: BP 114/79; PULSE 136; RESP 24; TEMP 36.4; O2SAT 92; BMI 35.7
--- NOTE | 2020-05-06 19:40 | ECG_ITS ---
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 Measurements Intervals [employer] Rate: 136 P: MI: 0 QRS: 39 QRSD: 100 T: 82 QT: 289 QTc: 436 Interpretive Statements SUPRAVENTRICULAR TACHYCARDIA NONSPECIFIC ST & T-WAVE ABNORMALITY ABNORMAL RHYTHM ECG Compared to ECG 02/11/2020 00:41:41 T-wave abnormality now present Sinus bradycardia no longer present First degree AV block no longer present Electronically Signed On 05-08-2020 19:12:57 CDT by Sujey Burt M.D. [email or web address]
--- NOTE | 2020-05-06 19:40 | XR_ITS ---
WS: [id number] XR chest 1V portable [id number] REASON FOR EXAM: cp FINDINGS: Elevation of the right hemidiaphragm. This was seen on previous exam of February 10, 2020. The cardiac silhouette is not enlarged. There is interstitial markings noted bilaterally. These are similar to the previous exam. There is arteriosclerotic changes seen in the arch the aorta. The hilum and apices are normal. XR/XR chest 1V portable [id number] IMPRESSION: Interstitial changes bilaterally Arteriosclerotic changes
[2020-05-06] MEDS: sodium chloride 0.9% 1,000 ML 999 ML IV (19:55)
--- NOTE | 2020-05-06 19:58 | ED_ITS ---
HPI - Arrhythmia/Palpitations General: Chief Complaint: Arrhythmia/Palpitations Stated Complaint: high pulse Time Seen by Provider: 05/06/20 19:40 Source: patient Mode of arrival: ambulatory Limitations: no limitations History of Present Illness: HPI narrative: 75-year-old male who has a history of SVT states that starting 3 hours ago he started having palpitations along with chest pain. He states this feels like when he had SVT in the past. Patient's been converted with adenosine and Cardizem in the past. He had a stress test that was negative months ago. He denies any shortness of breath. MD complaint: rapid heart beat Associated symptoms: Deny nausea or vomiting Review of Systems Const: Denies: fever(s), chills, body aches or change in appetite Eyes: Denies: blurry vision or eye discomfort ENMT: Denies: throat pain or dental pain Card: Reports: chest pain, palpitations and irregular heart rhythm Resp: Denies: dyspnea GI: Denies: abdominal pain, nausea, vomiting or diarrhea : Denies: dysuria Musc: Denies: neck pain or back pain Skin/Breast: Denies: rash Neuro: Denies: headache(s) Psych: Denies: depression Laith/Lymph: Denies: easy bruising All/Imm: Denies: urticaria PFSH ED PFSH: Medical History Atherosclerotic heart disease of [place] coronary artery with other forms of angina pectoris Benign essential hypertension with target blood pressure below 140/90 CAD (coronary artery disease) Diabetes mellitus treated with oral medication Dyslipidemia (high LDL; low HDL) Elevated LFTs History of throat cancer Hyperlipemia Hypertension Hypothyroid Ischemic cardiomyopathy Lumbar pain with radiation down both legs Myocardial infarction Nocturia Nodule of right lung Onychomycosis of toenail Reactive airway disease with wheezing Right leg DVT Seasonal allergies Shortness of breath Sleep apnea Supraventricular tachycardia Troponin level elevated Surgical History History of heart artery stent September 2019: LAD x2 Family History Father CAD (coronary artery disease) Brother Cancer Sister Lung disease Denies family history of Diabetes Clotting disorder Dementia Hyperlipidemia Psychiatric illness Chronic kidney disease (CKD) Suicide Anesthesia complication Bleeding disorder Family history of premature coronary artery disease Hypertension Stroke Social History Smoking and tobacco status: never smoked Second hand smoke exposure: No Lives independently: Yes Household members: significant other Marital status: service: Yes Current occupational status: retired History of recent travel: No Current gender identity: Male Physical Exam Const: COMMON NORMALS: no acute distress, patient oriented x3 and healthy appearing HENMT: COMMON NORMALS: normocephalic and atraumatic HEAD & SCALP: normocephalic and atraumatic Eye: COMMON NORMALS: Equal, round and reactive pupils present and EOMs intact bilaterally PUPIL: Yes Equal, round and reactive pupils present Neck/C-Spine: COMMON NORMALS: full ROM and supple Chest: COMMONS NORMALS: normal inspection of the chest and normal palpation of entire chest wall Resp: COMMON NORMALS: normal respiratory effort, No retractions, No use of accessory muscles and clear to auscultation bilaterally AUSCULTATION: clear to auscultation bilaterally Cardio: COMMON NORMALS: regular rate, regular rhythm and No murmurs present (Cardio) RATE: regular rate RHYTHM: regular rhythm GI: COMMON NORMALS: Normal to inspection, nondistended, normoactive bowel sounds present, Soft to palpation, non-tender and no masses PALPATION: Yes Soft to palpation Extremity: COMMON NORMALS: normal to inspection and full ROM Neuro: COMMON NORMALS: patient oriented x3, moves all extremities and no focal motor deficits Psych: COMMON NORMALS: mental status grossly normal, Normal thought process present and cooperative THOUGHT PROCESS: Normal thought process present Skin: COMMON NORMALS: no rashes or lesions noted and no wounds GENERAL SKIN EXAM: no rashes or lesions noted Course Vital Signs: Vital signs: Vital Signs Temperature 97.6 F 05/06/20 19:33 Pulse Rate 136 H 05/06/20 19:33 Respiratory Rate 24 H 05/06/20 19:33 Blood Pressure 114/79 05/06/20 19:33 Pulse Oximetry 92 05/06/20 19:33 MDM - Arrhythmia/Palpitations MDM Narrative: Medical decision making narrative: Patient presents here with SVT that was converted with adenosine. Patient is now pain-free no longer symptomatic. I believe his pain is from his SVT is no signs of coronary cause. Patient stable for discharge is return if worsening. Imaging Data^: CXR: Attestation: I personally reviewed and interpreted this imaging study as follows: My impression: no acute abnormality EKG Data^: EKG 1: Attestation: I personally reviewed and interpreted this EKG as follows: EKG interpretation date: 05/06/20 EKG interpretation time: 19:29 Interpretation: svt hr [address] or t wave abnormalities qrs 100 qtc 369 EKG 2: Attestation: I personally reviewed and interpreted this EKG as follows: EKG interpretation date: 05/06/20 EKG interpretation time: 20:23 Interpretation: nsr hr [address] or t wave abnormalities qrs 102 qtc 404 Discharge Plan Discharge Patient Disposition: Home, Self-Care Clinical Impression: SVT (supraventricular tachycardia) Condition: Stable Prescriptions: No Action aspirin [Aspir-81] 81 mg tablet,delayed release (DR/EC) 81 mg PO DAILY RF: 0 Xopenex HFA 45 mcg/actuation HFA aerosol inhaler 1 inh INHALATION Q6H PRN (Reason: shortness of breath or wheezing) Qty: 15 RF: 0 (DME) Navage Qty: 1 RF: 0 atorvastatin 40 mg tablet 40 mg PO DAILY Qty: 90 RF: 1 clopidogrel [Plavix] 75 mg tablet 75 mg PO DAILY Qty: 90 RF: 2 furosemide 20 mg tablet 20 mg PO QAM Qty: 90 RF: 1 gabapentin 300 mg capsule 300 mg PO TID Qty: 270 RF: 1 lisinopril 5 mg tablet 2.5 mg PO DAILY Qty: 90 RF: 1 metformin 500 mg tablet 500 mg PO BID Qty: 180 RF: 1 potassium chloride [Klor-Con 10] 10 mEq tablet extended release 10 meq PO BID Qty: 180 RF: 0 tamsulosin [Flomax] 0.4 mg capsule 0.4 mg PO DAILY Qty: 90 RF: 1 levothyroxine 75 mcg tablet 75 mcg PO DAILY Qty: 30 RF: 0 levocetirizine [Xyzal] 5 mg tablet 5 mg PO DAILY Qty: 30 RF: 0 metoprolol tartrate 25 mg tablet 25 mg PO BID Qty: 60 RF: 2 carvedilol 3.125 mg tablet 6.25 mg PO BID RF: 0 nitroglycerin 0.4 mg tablet, sublingual 0.4 mg sublingual PRN PRN (Reason: chest pains) RF: 0 Flonase Allergy Relief 50 mcg/actuation spray,suspension 1 spray nasal BID RF: 0 magnesium 200 mg Tablet 200 mg PO DAILY RF: 0 Discharge Orders: Discharge Order (Routine); Ordered 05/06/20 Ordered By: Brent Bhatt Referrals: Sally Min MD [Primary Care Provider] - 1-3 days Discharge Diet: Advance as tolerated Discharge Activity: Resume usual activity Patient Instructions: Supraventricular Tachycardia (ED) Coding Level of Care Code ED Feather [employer] Machine Feeder for Chg Fwd Exam Comprehensive
[2020-05-06] MEDS: adenosine 3 mg/mL SDV 2mL 6 MG IVP (20:16)
--- NOTE | 2020-05-06 21:40 | ECG_ITS ---
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 Measurements Intervals [place] Rate: 77 P: 36 MO: 213 QRS: 12 QRSD: 93 T: 61 QT: 362 QTc: 410 Interpretive Statements SINUS RHYTHM WITH SINUS ARRHYTHMIA WITH FIRST DEGREE AV BLOCK LOW QRS VOLTAGE IN PRECORDIAL LEADS [QRS DEFLECTION < 1.0 mV IN CHEST LEADS] Compared to ECG 02/11/2020 00:41:41 Low QRS voltage now present Sinus bradycardia no longer present Electronically Signed On 05-08-2020 14:18:08 CDT by Bruna Caldera M.D. [id number]
[2020-05-06 22:00] VITALS: BP 142/72; PULSE 83; RESP 14; O2SAT 98
== END 2020-05-06 22:03 | disposition home or self-care (01) ==
PROVIDERS: Emergency Provider Emergency Medicine; PCP Family Medicine
DX: I47.1 Supraventricular tachycardia (principal); Z79.02 Long term (current) use of antithrombotics/antiplatelets; Z79.84 Long term (current) use of oral hypoglycemic drugs; I10 Essential (primary) hypertension; I25.10 Atherosclerotic heart disease of native coronary artery without angina pectoris; E11.9 Type 2 diabetes mellitus without complications; E78.5 Hyperlipidemia, unspecified; Z85.21 Personal history of malignant neoplasm of larynx; I25.2 Old myocardial infarction
CPT/HCPCS: 12345; 71045; 93005; 96361; 96374; 99282; 99284; J0153; J7030

== ENCOUNTER → 2020-05-29 11:10 | Outpatient (BNVA) | payer MEDICARE, SELFPAY | PROVIDERS: PCP Family Medicine; Visit Provider Nurse Practitioner Family | DX: E11.9 Type 2 diabetes mellitus without complications (principal); N40.0 Benign prostatic hyperplasia without lower urinary tract symptoms; E03.9 Hypothyroidism, unspecified; R13.10 Dysphagia, unspecified; E78.5 Hyperlipidemia, unspecified; Z79.84 Long term (current) use of oral hypoglycemic drugs; Z79.899 Other long term (current) drug therapy; Z12.5 Encounter for screening for malignant neoplasm of prostate | CPT/HCPCS: 80053; 80061; 82044; 83036; 84443; 85025; G0103 ==

== ENCOUNTER → 2020-06-19 14:57 | Outpatient (BNVA) | payer MEDICARE, SELFPAY | PROVIDERS: PCP Family Medicine; Referring Provider Nurse Practitioner Family; Visit Provider Nurse Practitioner Family | DX: N40.0 Benign prostatic hyperplasia without lower urinary tract symptoms (principal); N40.1 Benign prostatic hyperplasia with lower urinary tract symptoms | CPT/HCPCS: 81001 ==

== ENCOUNTER → 2020-07-30 14:59 | Outpatient (BNVA) | payer MEDICARE, SELFPAY | PROVIDERS: PCP Family Medicine; Visit Provider Urology | DX: N40.1 Benign prostatic hyperplasia with lower urinary tract symptoms (principal) | CPT/HCPCS: 81001 ==

== ENCOUNTER → 2020-10-11 09:47 | Outpatient (BNVA) | payer MEDICARE, SELFPAY | PROVIDERS: PCP Family Medicine; Visit Provider Nurse Practitioner Family | DX: E11.9 Type 2 diabetes mellitus without complications (principal); Z79.84 Long term (current) use of oral hypoglycemic drugs; E03.9 Hypothyroidism, unspecified | CPT/HCPCS: 80053; 80061; 83036; 84443; 85025 ==

== ENCOUNTER → 2020-11-11 10:10 | Outpatient (BNVA) | payer MEDICARE, SELFPAY | PROVIDERS: PCP Family Medicine; Visit Provider Nurse Practitioner Family | DX: I10 Essential (primary) hypertension (principal); E78.5 Hyperlipidemia, unspecified | CPT/HCPCS: 80048 ==

== ENCOUNTER → 2021-03-18 14:40 | Outpatient (BNVA) | payer MEDICARE, SELFPAY | PROVIDERS: PCP Family Medicine; Visit Provider Internal Medicine Cardiovascular Disease | DX: I25.118 Atherosclerotic heart disease of native coronary artery with other forms of angina pectoris (principal) | CPT/HCPCS: 80048; 85025 ==

== ENCOUNTER → 2021-06-30 17:53 | Outpatient (BNVA) | payer MEDICARE, SELFPAY | PROVIDERS: PCP Family Medicine; Visit Provider Nurse Practitioner Family | DX: E11.9 Type 2 diabetes mellitus without complications (principal); Z79.84 Long term (current) use of oral hypoglycemic drugs; I10 Essential (primary) hypertension | CPT/HCPCS: 80053; 80061; 82043; 83036; 84443; 85025 ==

== ENCOUNTER → 2021-09-02 17:31 | Outpatient (BNVA) | payer MEDICARE, SELFPAY | PROVIDERS: PCP Family Medicine; Visit Provider Nurse Practitioner Family | DX: Z20.822 Contact with and (suspected) exposure to COVID-19 (principal) | CPT/HCPCS: 87635 ==

== ENCOUNTER 2021-09-04 07:45 | Outpatient (CLI) | payer MEDICARE, SELFPAY ==
--- NOTE | 2021-09-04 08:00 | USCV_ITS ---
VaibhavMiek Age: 76 Gender: M : 1945 Exam Date: 09/04/2021 08:05 Ordering Phys: Katelynn Bryant INFORMATICS SPEC INFORMATICS SPEC Technologist: PAUL [place] [facility] [place] CCA DISEASE Risk Factors: None Previous Vascular Surgery: Right Brachial BP: / Left Brachial BP: / Right Left Velocity (cm/s) Spectral Plaque Velocity (cm/s) Spectral Plaque Syst/Diast Broadening Syst/Diast Broadening 51.10/ 7.90 Prox CCA 49.10 / 9.10 53.60/ 12.30 Mid CCA 55.90 / 18.60 60.40/ 14.80 Distal CCA 67.60 / 16.30 57.30/ 16.20 Prox ICA 63.20 / 17.90 98.10/ 32.00 Mid ICA 57.00 / 12.40 65.70/ 17.70 Distal ICA 39.60 / 12.70 82.00 ECA 191.10 1.83 ICA/CCA 1.13 Antegrade Vertebral Antegrade 58.50/ 11.80 cm/s 32.00/ 11.70 cm/s Bi Subclavian Bi 101.7 192.5 0 0 FINDINGS Comparison: none available. No significant elevation of systolic or diastolic velocities. Mild diffuse, bilateral scattered calcified plaque and intimal thickening throughout the common carotid arteries and extending through the bifurcation. Antegrade vertebral arteries. CONCLUSIONS Bilateral ICA stenosis less than 50%. Mild diffuse carotid atherosclerosis. Dr. Tammy Sanders DO (Electronically Signed) Final Date: 04 September 2021 11:34 S
== END 2021-09-04 07:46 | disposition home or self-care (01) ==
PROVIDERS: PCP Family Medicine; Visit Provider Nurse Practitioner Family
DX: I65.23 Occlusion and stenosis of bilateral carotid arteries (principal); R09.89 Other specified symptoms and signs involving the circulatory and respiratory systems
CPT/HCPCS: 93880

== ENCOUNTER → 2021-10-27 12:05 | Outpatient (BNVA) | payer MEDICARE, SELFPAY | PROVIDERS: PCP Family Medicine; Visit Provider Nurse Practitioner Family | DX: I10 Essential (primary) hypertension (principal); J45.41 Moderate persistent asthma with (acute) exacerbation; E78.5 Hyperlipidemia, unspecified; E03.9 Hypothyroidism, unspecified; E11.9 Type 2 diabetes mellitus without complications; Z79.84 Long term (current) use of oral hypoglycemic drugs; Z68.37 Body mass index [BMI] 37.0-37.9, adult; Z71.89 Other specified counseling | CPT/HCPCS: 80053; 80061; 83036; 84443; 85025 ==

== ENCOUNTER → 2022-01-22 11:51 | Outpatient (BNVA) | payer MEDICARE, SELFPAY | PROVIDERS: PCP Family Medicine; Visit Provider Nurse Practitioner Family | DX: R60.9 Edema, unspecified (principal); Z68.37 Body mass index [BMI] 37.0-37.9, adult; Z01.810 Encounter for preprocedural cardiovascular examination; Z71.89 Other specified counseling | CPT/HCPCS: 80053; 83735; 83880; 85025 ==

== ENCOUNTER → 2022-02-09 10:35 | Outpatient (BNVA) | payer MEDICARE, SELFPAY | PROVIDERS: PCP Family Medicine; Visit Provider Nurse Practitioner Family | DX: R60.9 Edema, unspecified (principal); E04.1 Nontoxic single thyroid nodule | CPT/HCPCS: 80053; 83880; 85025 ==

== ENCOUNTER → 2022-04-09 15:46 | Outpatient (BNVA) | payer MEDICARE, SELFPAY | PROVIDERS: PCP Family Medicine; Visit Provider Internal Medicine Cardiovascular Disease | DX: I25.118 Atherosclerotic heart disease of native coronary artery with other forms of angina pectoris (principal); R06.02 Shortness of breath; R60.9 Edema, unspecified; I50.33 Acute on chronic diastolic (congestive) heart failure | CPT/HCPCS: 36415; 80048; 83880; 99024 ==

== ENCOUNTER → 2022-05-19 12:06 | Outpatient (BNVA) | payer MEDICARE, SELFPAY | PROVIDERS: PCP Family Medicine; Visit Provider Nurse Practitioner Family | DX: I10 Essential (primary) hypertension (principal); Z12.5 Encounter for screening for malignant neoplasm of prostate; E78.5 Hyperlipidemia, unspecified; E11.9 Type 2 diabetes mellitus without complications; Z79.84 Long term (current) use of oral hypoglycemic drugs; E03.9 Hypothyroidism, unspecified | CPT/HCPCS: 80053; 80061; 83036; 83880; 85025; G0103 ==

== ENCOUNTER → 2022-07-16 15:24 | Outpatient (BNVA) | payer MEDICARE, SELFPAY | PROVIDERS: PCP Family Medicine; Visit Provider Internal Medicine Cardiovascular Disease | DX: I25.118 Atherosclerotic heart disease of native coronary artery with other forms of angina pectoris (principal); R60.9 Edema, unspecified; E03.9 Hypothyroidism, unspecified; E78.5 Hyperlipidemia, unspecified; I10 Essential (primary) hypertension; I47.1 Supraventricular tachycardia; E11.9 Type 2 diabetes mellitus without complications; Z79.84 Long term (current) use of oral hypoglycemic drugs | CPT/HCPCS: 99214 ==

== ENCOUNTER → 2022-10-29 15:36 | Outpatient (BNVA) | payer MEDICARE, SELFPAY | PROVIDERS: PCP Family Medicine; Visit Provider Nurse Practitioner Family | DX: I10 Essential (primary) hypertension (principal); E11.9 Type 2 diabetes mellitus without complications; Z79.84 Long term (current) use of oral hypoglycemic drugs; J30.9 Allergic rhinitis, unspecified; R60.9 Edema, unspecified; E78.5 Hyperlipidemia, unspecified; N40.1 Benign prostatic hyperplasia with lower urinary tract symptoms; L25.9 Unspecified contact dermatitis, unspecified cause; I25.10 Atherosclerotic heart disease of native coronary artery without angina pectoris; E03.9 Hypothyroidism, unspecified | CPT/HCPCS: 80053; 80061; 83036; 83735; 84443; 85025 ==

== ENCOUNTER → 2023-01-22 08:49 | Outpatient (BNVA) | payer MEDICARE, SELFPAY | PROVIDERS: PCP Family Medicine; Visit Provider Nurse Practitioner Family | DX: E04.1 Nontoxic single thyroid nodule (principal); R74.8 Abnormal levels of other serum enzymes | CPT/HCPCS: 80076; 84443 ==

== ENCOUNTER → 2023-04-26 10:03 | Outpatient (BNVA) | payer MEDICARE, SELFPAY | PROVIDERS: PCP Nurse Practitioner Family; Visit Provider Nurse Practitioner Family | DX: E11.9 Type 2 diabetes mellitus without complications (principal); Z79.84 Long term (current) use of oral hypoglycemic drugs | CPT/HCPCS: 80053; 80061; 83036; 84443; 85025 ==

== ENCOUNTER → 2023-06-18 16:09 | Outpatient (BNVA) | payer MEDICARE, SELFPAY | PROVIDERS: PCP Nurse Practitioner Family; Visit Provider Nurse Practitioner Family | DX: K92.1 Melena (principal) | CPT/HCPCS: 82272 ==

== ENCOUNTER → 2023-10-08 12:28 | Outpatient (BNVA) | payer MEDICARE, SELFPAY | PROVIDERS: PCP Nurse Practitioner Family; Visit Provider Family Medicine | DX: E11.9 Type 2 diabetes mellitus without complications (principal); Z79.84 Long term (current) use of oral hypoglycemic drugs; E03.9 Hypothyroidism, unspecified; E78.5 Hyperlipidemia, unspecified; I10 Essential (primary) hypertension; I21.A9 Other myocardial infarction type; I25.10 Atherosclerotic heart disease of native coronary artery without angina pectoris; R09.81 Nasal congestion | CPT/HCPCS: 80053; 80061; 83036; 84443; 85025 ==

== ENCOUNTER → 2024-02-08 11:41 | Outpatient (BNVA) | payer MEDICARE, SELFPAY | PROVIDERS: PCP Nurse Practitioner Family; Visit Provider Nurse Practitioner Family | DX: Z12.5 Encounter for screening for malignant neoplasm of prostate (principal); E11.9 Type 2 diabetes mellitus without complications; Z79.84 Long term (current) use of oral hypoglycemic drugs | CPT/HCPCS: 80053; 80061; 82043; 83036; 84443; 85025; G0103 ==

== ENCOUNTER → 2024-05-16 11:39 | Outpatient (BNVA) | payer MEDICARE, SELFPAY | PROVIDERS: PCP Nurse Practitioner Family; Visit Provider Nurse Practitioner Family | DX: E11.9 Type 2 diabetes mellitus without complications (principal); Z79.84 Long term (current) use of oral hypoglycemic drugs | CPT/HCPCS: 80053; 80061; 82607; 83036; 84443; 85025 ==

== ENCOUNTER → 2024-08-16 14:29 | Outpatient (BNVA) | payer MEDICARE, SELFPAY | PROVIDERS: PCP Nurse Practitioner Family; Visit Provider Nurse Practitioner Family | DX: I25.10 Atherosclerotic heart disease of native coronary artery without angina pectoris (principal); E11.9 Type 2 diabetes mellitus without complications; Z79.84 Long term (current) use of oral hypoglycemic drugs; I21.A9 Other myocardial infarction type | CPT/HCPCS: 80053; 80061; 83036; 85025 ==

== ENCOUNTER 2024-09-16 19:43 | Emergency (ER) | payer MEDICARE, SELFPAY ==
--- NOTE | 2024-09-16 20:00 | XRR_ITS ---
PROCEDURE INFORMATION: Exam: XR Right Hand Exam date and time: 09/16/2024 8:23 PM Age: 79 years old Clinical indication: Injury or trauma; Right; Patient HX: RT hand pain; Laceration to RT 5th digit TECHNIQUE: Imaging protocol: Radiologic exam of the right hand. Views: 3 or more views. COMPARISON: No relevant prior studies available. FINDINGS: Bones/joints: No definite acute fracture or dislocation. Apparent fusion of the 2nd distal interphalangeal joint related to degenerative change. Advanced degenerative changes also seen of the 5th proximal and distal interphalangeal joints. Suspected old healed fracture of the head of the 5th metacarpal. Soft tissues: Soft tissue injury to the 5th finger. XR/XR hand RT min 3V* [id number] IMPRESSION: No definite acute osseous findings. Chronic findings as above.
[2024-09-16 20:19] VITALS: BP 146/68; PULSE 61; RESP 17; TEMP 36.3; O2SAT 95; BMI 35.9
--- NOTE | 2024-09-16 21:32 | ED_ITS ---
HPI - Wound/Laceration General: Chief Complaint: Wound/Laceration Stated Complaint: Right hand injury/ lac Time Seen by Provider: 09/16/24 21:23 History of Present Illness: Mike is a 79-year-old [id number] male who presents to the emergency department with a laceration to the palmar aspect of the right fifth digit between the DIP and PIP. Patient reports that he dropped a tool box and it ended up avulsing the soft tissue. There is no exposure of tendon. No active bleeding. Patient is neurovascularly intact. Not up-to-date on tetanus Takes Plavix and aspirin Denies other extremity, muscle, joint pain Related Data Home Medications Medication Instructions Recorded Confirmed magnesium 200 mg tablet 400 mg PO DAILY 07/16/22 08/16/24 Previous Rx's Medication Instructions Recorded Navage #1 ea 02/12/20 aspirin 81 mg tablet,delayed 81 mg PO DAILY #90 tabs 09/22/21 release nebulizer machine, tubing and mask #1 ea 10/27/21 compression hose #2 ea 02/27/22 nitroglycerin 0.4 mg sublingual 0.4 mg sublingual Q5M PRN chest 04/21/23 tablet pain #20 tabs polyethylene glycol 3350 17 17 g PO DAILY PRN constipation 06/09/23 gram/dose oral powder (Miralax) #238 grams triamcinolone acetonide 0.1 % 1 applic topical BID 10 days #80 06/09/23 topical cream grams levalbuterol tartrate 45 1 inh inhalation Q6H PRN shortness 03/28/24 mcg/actuation aerosol inhaler of breath or wheezing #15 grams (Xopenex HFA) metoprolol tartrate 25 mg tablet See Rx Instructions .Route 05/01/24 .COMPLEX #90 tabs fluticasone propionate 50 See Rx Instructions .Route 05/11/24 mcg/actuation nasal .COMPLEX #16 grams spray,suspension clopidogrel 75 mg tablet See Rx Instructions .Route 05/15/24 .COMPLEX #90 tabs budesonide-formoterol HFA 80 2 puff inhalation BID #10.2 grams 05/16/24 mcg-4.5 mcg/actuation aerosol inhaler (Symbicort) furosemide 20 mg tablet See Rx Instructions .Route 07/12/24 .COMPLEX #270 tabs metformin 500 mg tablet See Rx Instructions .Route 07/27/24 .COMPLEX #180 tabs potassium chloride 10 mEq See Rx Instructions .Route 08/02/24 tablet,extended release .COMPLEX #180 tabs levothyroxine 112 mcg tablet See Rx Instructions .Route 08/14/24 .COMPLEX #90 tabs gabapentin 300 mg capsule See Rx Instructions .Route 08/15/24 .COMPLEX #270 caps levocetirizine 5 mg tablet See Rx Instructions .Route 08/21/24 .COMPLEX #100 tabs atorvastatin 40 mg tablet See Rx Instructions .Route 08/29/24 .COMPLEX #90 tabs meloxicam 7.5 mg tablet See Rx Instructions .Route 08/29/24 .COMPLEX #90 tabs tamsulosin 0.4 mg capsule See Rx Instructions .Route 08/29/24 .COMPLEX #90 caps Allergies Allergy/AdvReac Type Severity Reaction Status Date / Time erythromycin base Allergy ALGY-Hives Verified 09/16/24 20:18 Review of Systems General: Reports: 10 or more systems reviewed and unremarkable except in HPI and below PFSH ED PFSH: Medical History Enrolled in chronic care management Hx of fracture of finger BPH loc w urin obs/LUTS BPH (benign prostatic hyperplasia) Reactive airway disease with wheezing Dyslipidemia (high LDL; low HDL) Benign essential hypertension with target blood pressure below 140/90 Atherosclerotic heart disease of [place] coronary artery with other forms of angina pectoris Troponin level elevated Sleep apnea Lumbar pain with radiation down both legs Elevated LFTs Nodule of right lung History of throat cancer Diabetes mellitus treated with oral medication Shortness of breath Onychomycosis of toenail Seasonal allergies Ischemic cardiomyopathy Myocardial infarction Supraventricular tachycardia Right leg DVT Nocturia Hypertension Hyperlipemia Hypothyroid CAD (coronary artery disease) Surgical History History of heart artery stent September 2019: LAD x2 Family History Father CAD (coronary artery disease) Brother Cancer Sister Lung disease Denies family history of Diabetes Clotting disorder Dementia Hyperlipidemia Psychiatric illness Chronic kidney disease (CKD) Suicide Anesthesia complication Bleeding disorder Family history of premature coronary artery disease Hypertension Stroke Social History Smoking and tobacco/nicotine status: never used tobacco/nicotine Second hand smoke exposure: No Alcohol intake: never Substance/Drug Use: never Caregiver/support person: Yes Lives independently: Yes Household members: significant other Marital status: service: Yes branch: [employer] Current occupational status: retired Current gender identity: Male Special glenna needs: No Physical Exam Const: COMMON NORMALS: no acute distress GENERAL APPEARANCE: cooperative ORIENTATION/CONSCIOUSNESS: Yes awake Extremity: COMMON NORMALS: normal to inspection GENERAL: Yes normal exam except as noted RIGHT UPPER EXTREMITY: Yes hand & digits Right hand and digits: Yes neurovascular exam Psych: COMMON NORMALS: mental status grossly normal, Normal thought process present, cooperative, activity/motor behavior normal, denies homicidal ideation and denies suicidal ideation THOUGHT PROCESS: Normal thought process present Skin: COMMON NORMALS: no rashes or lesions noted, no wounds and turgor normal GENERAL SKIN EXAM: no rashes or lesions noted and turgor normal TRAUMA: laceration (To the palmar aspect of the right fifth finger between PIP and DIP joint. ) avulsion OTHER: The avulsion is approximately 3/4-1 cm in diameter. There is no way to close this. Course Vital Signs: Vital signs: Vital Signs Temperature 97.3 F L 09/16/24 20:19 Pulse Rate 61 09/16/24 20:19 Respiratory Rate 17 09/16/24 20:19 Blood Pressure 146/68 09/16/24 20:19 Pulse Oximetry 95 09/16/24 20:19 Oxygen Delivery Me thod Room Air 09/16/24 20:19 MDM - Wound/Laceration Medical Decision Making Patient was evaluated in the emergency department today for finger injury. Dropped a toolbox on his hand and ended up sustaining approximately 1 cm avulsed area to palmar aspect of the right fifth digit between PIP and DIP. He underwent XR imaging of the hand which revealed no acute fracture or dislocation. He had no way to repair the soft tissue/close it. We ended up doing a was cleaning his hand and then dressing it with Xeroform and a nonstick dressing. Materials was sent home with the patient as well Tdap was updated. No antibiotics were indicated. He needs to monitor his symptoms closely and follow-up for recheck of todays complaints with his primary care doctor mid to end of the week XR interpretation done by ED provider, pending radiology final review Discharge Plan Discharge Patient Disposition: Home Clinical Impression: Avulsion of soft tissue Condition: Stable Prescriptions: No Action (DME) nebulizer machine, tubing and mask See Rx Instructions .Route .MEDSUPPLY Qty: 1 0RF Rx Instructions: As directed (DME) Navage Qty: 1 0RF Rx Instructions: As directed polyethylene glycol 3350 [Miralax] 17 gram/dose powder 17 g PO DAILY PRN (Reason: constipation) Qty: 238 2RF triamcinolone acetonide 0.1 % cream 1 applic topical BID 10 Days Qty: 80 0RF budesonide-formoterol [Symbicort] 80-4.5 mcg/actuation HFA aerosol inhaler 2 puff inhalation BID Qty: 10.2 2RF aspirin 81 mg tablet,delayed release (DR/EC) 81 mg PO DAILY Qty: 90 1RF (DME) compression hose 10-20 See Rx Instructions .Route .MEDSUPPLY Qty: 2 0RF Rx Instructions: As directed nitroglycerin 0.4 mg tablet, sublingual 0.4 mg sublingual Q5M PRN (Reason: chest pain) Qty: 20 0RF Rx Instructions: do not exceed 3 doses per episode levalbuterol tartrate [Xopenex HFA] 45 mcg/actuation HFA aerosol inhaler 1 inh INHALATION Q6H PRN (Reason: shortness of breath or wheezing) Qty: 15 5RF metoprolol tartrate 25 mg tablet See Rx Instructions .ROUTE .COMPLEX Qty: 90 1RF Dose Instruction: Take 1 tablet by mouth once daily Rx Instructions: Take 1 tablet by mouth once daily fluticasone propionate 50 mcg/actuation spray,suspension See Rx Instructions .ROUTE .COMPLEX Qty: 16 2RF Dose Instruction: Use 1 spray(s) in each nostril once daily Rx Instructions: Use 1 spray(s) in each nostril once daily clopidogrel 75 mg tablet See Rx Instructions .ROUTE .COMPLEX Qty: 90 1RF Dose Instruction: Take 1 tablet by mouth once daily Rx Instructions: Take 1 tablet by mouth once daily furosemide 20 mg tablet See Rx Instructions .ROUTE .COMPLEX Qty: 270 1RF Dose Instruction: Take 3 tablets by mouth once daily Rx Instructions: Take 3 tablets by mouth once daily metformin 500 mg tablet See Rx Instructions .ROUTE .COMPLEX Qty: 180 1RF Dose Instruction: Take 1 tablet by mouth twice daily Rx Instructions: Take 1 tablet by mouth twice daily potassium chloride 10 mEq tablet extended release See Rx Instructions .ROUTE .COMPLEX Qty: 180 0RF Dose Instruction: Take 1 tablet by mouth twice daily Rx Instructions: Take 1 tablet by mouth twice daily levothyroxine 112 mcg tablet See Rx Instructions .ROUTE .COMPLEX Qty: 90 0RF Dose Instruction: Take 1 tablet by mouth once daily Rx Instructions: Take 1 tablet by mouth once daily gabapentin 300 mg capsule See Rx Instructions .ROUTE .COMPLEX Qty: 270 0RF Dose Instruction: TAKE 1 CAPSULE BY MOUTH THREE TIMES DAILY Rx Instructions: TAKE 1 CAPSULE BY MOUTH THREE TIMES DAILY levocetirizine 5 mg tablet See Rx Instructions .ROUTE .COMPLEX Qty: 100 3RF Dose Instruction: Take 1 tablet by mouth once daily Rx Instructions: Take 1 tablet by mouth once daily meloxicam 7.5 mg tablet See Rx Instructions .ROUTE .COMPLEX Qty: 90 0RF Dose Instruction: Take 1 tablet by mouth once daily Rx Instructions: Take 1 tablet by mouth once daily tamsulosin 0.4 mg capsule See Rx Instructions .ROUTE .COMPLEX Qty: 90 0RF Dose Instruction: Take 1 capsule by mouth once daily Rx Instructions: Take 1 capsule by mouth once daily atorvastatin 40 mg tablet See Rx Instructions .ROUTE .COMPLEX Qty: 90 0RF Dose Instruction: Take 1 tablet by mouth once daily Rx Instructions: Take 1 tablet by mouth once daily magnesium 200 mg tablet 400 mg PO DAILY Discharge Orders: Discharge ED (Routine); Ordered 09/16/24 Ordered By: Jevon Thompson Referrals: Katelynn Bryant FNP [Primary Care Provider] - Discharge Diet: Advance as tolerated Discharge Activity: Resume usual activity Patient Instructions: Finger Laceration (ED), Pain Management Activity Restrictions/Additional Instructions: Keep a close eye on the finger and ensure that it is healing. We want to watch for redness warmth or drainage. If you develop concerns for infection then you need to be reevaluated. This can be done at your primary care office or here in the emergency department. Dressing changes daily with materials provided keep the area clean and dry. Avoid any additional trauma to the area. 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 Coding Level of Care Code ED Tax Director for Janny Hyatt
== END 2024-09-16 22:07 | disposition home or self-care (01) ==
PROVIDERS: Emergency Provider Nurse Practitioner; PCP Nurse Practitioner Family
DX: S61.216A Laceration without foreign body of right little finger without damage to nail, initial encounter (principal); W22.8XXA Striking against or struck by other objects, initial encounter
CPT/HCPCS: 73130; 99283

== ENCOUNTER → 2024-12-05 10:15 | Outpatient (BNVA) | payer MEDICARE, SELFPAY | PROVIDERS: PCP Nurse Practitioner Family; Visit Provider Nurse Practitioner Family | DX: E11.9 Type 2 diabetes mellitus without complications (principal); Z79.84 Long term (current) use of oral hypoglycemic drugs | CPT/HCPCS: 80053; 80061; 82607; 83036; 84443; 85025 ==

== ENCOUNTER → 2025-02-14 15:32 | Outpatient (BNVA) | payer MEDICARE, SELFPAY | PROVIDERS: PCP Nurse Practitioner Family; Visit Provider Internal Medicine Cardiovascular Disease | DX: I25.10 Atherosclerotic heart disease of native coronary artery without angina pectoris (principal); I25.5 Ischemic cardiomyopathy; I10 Essential (primary) hypertension; E78.5 Hyperlipidemia, unspecified; R60.9 Edema, unspecified; Z95.5 Presence of coronary angioplasty implant and graft | CPT/HCPCS: 99214 ==

== ENCOUNTER → 2025-03-23 10:02 | Outpatient (BNVA) | payer MEDICARE, SELFPAY | PROVIDERS: PCP Nurse Practitioner Family; Visit Provider Nurse Practitioner Family | DX: E03.9 Hypothyroidism, unspecified (principal); E11.9 Type 2 diabetes mellitus without complications; Z79.84 Long term (current) use of oral hypoglycemic drugs | CPT/HCPCS: 80053; 80061; 83036; 84443; 85025 ==

== ENCOUNTER → 2025-09-26 09:17 | Outpatient (BNVA) | payer MEDICARE, SELFPAY | PROVIDERS: PCP Nurse Practitioner Family; Visit Provider Nurse Practitioner Family | DX: I10 Essential (primary) hypertension (principal); E11.9 Type 2 diabetes mellitus without complications; R30.0 Dysuria; E03.9 Hypothyroidism, unspecified; Z79.84 Long term (current) use of oral hypoglycemic drugs | CPT/HCPCS: 80053; 80061; 81000; 83036; 84443; 85025 ==

== ENCOUNTER 2025-10-05 08:01 | Outpatient (CLI) | payer MEDICARE, SELFPAY ==
--- NOTE | 2025-10-05 08:30 | FL_ITS ---
WS: [id number] Exam: [place] barium swallow [id number] Date/Time of Exam: 10/05/2025 8:11 AM Reason For Exam: R13.10 - Dysphagia, unspecified Fluoroscopy time: 2min [id number] minutes # of spot films: Oropharyngeal phase of swallowing was normal. There is quite a lot of pooling of barium in the vallecula and piriform sinuses. No obvious aspiration. Mild penetration was noted. There is mild esophageal narrowing at the C6 level secondary to anterior osteophytes of C5 and 6. No intrinsic esophageal mass was noted. The remainder of the esophagus is patent. No hiatal hernia or gastroesophageal reflux. Recommendations: Consider modified barium swallow for more detailed evaluation. FL/FL barium swallow [id number] IMPRESSION: 1. Dilatation of the hypopharynx with pooling of barium in the piriform and jose e lecula. Mild penetration into the laryngeal inlet. 2. Mild extrinsic narrowing of the cervical esophagus at the C5-6 level seconda ry to anterior bone spurs. 3. No intrinsic esophageal mass identified. No reflux or hiatal hernia.
== END 2025-10-05 08:02 | disposition home or self-care (01) ==
PROVIDERS: PCP Nurse Practitioner Family; Visit Provider Nurse Practitioner Family
DX: R13.10 Dysphagia, unspecified (principal); J38.7 Other diseases of larynx; K22.2 Esophageal obstruction; M50.322 Other cervical disc degeneration at C5-C6 level
CPT/HCPCS: 74220

== ENCOUNTER 2025-10-29 10:33 | Outpatient (CLI) | payer MEDICARE, SELFPAY ==
--- NOTE | 2025-10-29 09:37 | FL_ITS ---
FL barium swallow modifd [id number] REASON FOR EXAM: J39.2 - Other diseases of pharynx FLUOROSCOPY TIME: 3min [id number] # OF SPOT FILMS: None TECHNIQUE: Examination was supervised by the speech therapy department. The patient was evaluated in the sitting upright lateral projection. The swallowing of varying consistencies of barium was monitored fluoroscopically and video recorded. FINDINGS: Persistent pooling of contrast within the valleculae which required additional hard swallows to clear. There was erin aspiration with a swallowing of thin liquids. With a tight chin tuck there appeared to be penetration of contrast into the laryngeal vestibule without aspiration. No significant cricopharyngeal Unimpeded barium tablet transit of the cervical and thoracic esophagus into the stomach. IMPRESSION: Aspiration as above. A detailed report of the swallowing will be rendered by the speech therapy department. No esophageal obstruction. MTDD
== END 2025-10-29 10:34 | disposition home or self-care (01) ==
LOC: RAD 10:34
PROVIDERS: PCP Nurse Practitioner Family; Visit Provider Nurse Practitioner Family
DX: J39.2 Other diseases of pharynx (principal)
CPT/HCPCS: 74230; 92611